=== PATIENT | female | born 1945 | race American Indian/Alaskan Native ===

== ENCOUNTER 2017-08-23 09:55 | Inpatient (IN) | payer OTHER, MEDICARE ==
[2017-08-23 10:15] VITALS: BMI 39.6
--- NOTE | 2017-08-23 10:38 | ED PDOC ---
Arrival/HPI - General Chief Complaint: Shortness Of Breath Time Seen by Provider: 08/23/17 10:02 Historian: Patient - History of Present Illness Narrative History of Present Illness (Text): 08/23/17 10:30 72 year old female, whose PMH includes COPD and hypertension, who presents to the emergency department complaining of shortness of breath associated with coughing. Patient states she was prescribed Prednisone on Wednesday but it has made no significant difference. Patient denies other complaints. Time/Duration: < week Symptom Onset: Sudden Symptom Course: Unchanged Context: Home Past Medical History - Provider Review Nursing Documentation Reviewed: Yes - Tetanus Immunization Tetanus Immunization: Up to Date - Reproductive Menopause: Yes - Cardiac Hx Hypertension: Yes - Pulmonary Hx Asthma: Yes - Psychiatric Hx Depression: No Hx Emotional Abuse: No Hx Physical Abuse: No Hx Substance Use: No - Surgical History Hx Hysterectomy: Yes Hx Tonsillectomy: Yes - Suicidal Assessment Feels Threatened In Home Enviroment: No Family/Social History - Physician Review Nursing Documentation Reviewed: Yes Family/Social History: Unknown Family HX Hx Alcohol Use: Yes Hx Substance Use: No Hx Substance Use Treatment: No Allergies/Home Meds Allergies/Adverse Reactions: Allergies statins Allergy (Uncoded 08/23/17 10:30) stinging sensation in legs Home Medications: Home Meds Medication Instructions Recorded Confirmed Budesonide/Formoterol Fumarate 1 aer IH PRN PRN 08/30/13 08/23/17 [Symbicort] Ezetimibe 10 mg PO DAILY 08/23/17 08/23/17 Tiotropium [Spiriva] 18 mcg IH DAILY 08/23/17 08/23/17 amLODIPine [Norvasc] 10 mg PO DAILY 08/23/17 08/23/17 Review of Systems - Physician Review All systems were reviewed & negative as marked: Yes - Review of Systems Constitutional: absent: Fevers Respiratory: SOB, Cough Cardiovascular: absent: Chest Pain Gastrointestinal: absent: Abdominal Pain Physical Exam Vital Signs Reviewed: Yes Vital Signs Temp Pulse Resp BP Pulse Ox 08/23/17 14:14 98.3 F 83 18 115/55 L 98 08/23/17 13:56 74 18 111/55 L 97 08/23/17 12:16 98.3 F 79 17 127/57 L 96 08/23/17 11:15 17 08/23/17 11:08 98.3 F 70 17 120/66 96 08/23/17 10:09 98.4 F 73 18 133/74 98 Temperature: Afebrile Blood Pressure: Normal Pulse: Regular Respiratory Rate: Normal Appearance: Positive for: Well-Appearing, Non-Toxic, Comfortable Pain Distress: None Mental Status: Positive for: Alert and Oriented X 3 - Systems Exam Head: Present: Atraumatic, Normocephalic Pupils: Present: PERRL Extroacular Muscles: Present: EOMI Conjunctiva: Present: Normal Mouth: Present: Moist Mucous Membranes Respiratory/Chest: Present: Clear to Auscultation, Decreased Breath Sounds ( bilaterally ). No: Good Air Exchange, Respiratory Distress, Accessory Muscle Use, Wheezes, Rales Cardiovascular: Present: Regular Rate and Rhythm, Normal S1, S2. No: Murmurs Abdomen: Present: Normal Bowel Sounds. No: Tenderness, Distention, Peritoneal Signs, Rebound, Guarding Neurological: Present: GCS=15, CN II-XII Intact, Speech Normal Skin: Present: Warm, Dry, Normal Color. No: Rashes Psychiatric: Present: Alert, Oriented x 3, Normal Insight, Normal Concentration Medical Decision Making ED Course and Treatment: 08/23/17 Impression: 72 year old female with diminished breath sounds bilaterally complaining of shortness of breath associated with coughing. Plan: -- EKG -- Chest X-ray -- Labs -- Duoneb and Solumedrol -- Reassess and disposition Progress Notes: EKG: Ordered, reviewed, and independently interpreted the EKG. Rate : 78 BPM Rhythm : NSR Interpretation : No ST-segment elevations or depressions, no T-wave inversions, normal intervals. Comparison : No previous EKG for comparison. 08/23/17 14:32 failure of oupt tx. accepte by dr valenzuela covering dr talbert. - Lab Interpretations Lab Results: 08/23/17 10:30 08/23/17 10:30 Lab Results 08/23/17 10:30: pO2 130 H, VBG pH 7.45 H, VBG pCO2 43.0, VBG HCO3 29.9 H, VBG Total CO2 31.2 H, VBG O2 Sat (Calc) 100.0 H, VBG Base Excess 5.2 H, VBG Potassium 3.4 L, Sodium 139.0, Chloride 104.0, Glucose 116 H, Lactate 1.0, FiO2 21.0, Venous Blood Potassium 3.4 L 08/23/17 10:30: Sodium 140, Chloride 100, Potassium 3.4 L, Carbon Dioxide 29, Anion Gap 15, BUN 20, Creatinine 1.1, Est GFR ( Amer) 59, Est GFR (Non- Af Amer) 49, Random Glucose 112 H, Calcium 9.2, Magnesium 2.1, Total Bilirubin 0.4, AST 31, ALT 43, Alkaline Phosphatase 83, Lactate Dehydrogenase 527, Total Creatine Kinase 277 H, CK-MB (CK-2) 2.9, CK-MB (CK-2) % Cancelled, Troponin I < 0.01, NT-Pro-B Natriuret Pep 31.6, Total Protein 7.3, Albumin 4.2, Globulin 3.1 , Albumin/Globulin Ratio 1.3 08/23/17 10:30: PT 11.6, INR 1.01, APTT 33.1, D-Dimer, Quantitative < 200 08/23/17 10:30: WBC 10.8, RBC 4.37, Hgb 12.3, Hct 36.6, MCV 83.8, MCH 28.1, MCHC 33.6, RDW 14.7 H, Plt Count 344, MPV 8.9, Gran % 67.2, Lymph % (Auto) 25.2 , [place] % (Auto) 3.0, Eos % (Auto) 4.4, Baso % (Auto) 0.2, Gran # 7.27 H, Lymph # (Auto) 2.7, [place] # (Auto) 0.3, Eos # (Auto) 0.5, Baso # (Auto) 0.02 I have reviewed the lab results: Yes - RAD Interpretation Radiology Orders: 08/23/17 10:35 CHEST PORTABLE [RAD] Stat Game Author: Radiologist - EKG Interpretation Interpreted by ED Physician: Yes Type: 12 lead EKG - Medication Orders Current Medication Orders: Discontinued Medications Albuterol/Ipratropium (Duoneb 3 Mg/0.5 Mg (3 Ml) Ud) 3 ml IH Q15M KARY Stop: 08/23/17 11:16 Last Admin: 08/23/17 11:50 Dose: 3 ml Methylprednisolone (Solu-Medrol) 125 mg IVP STAT STA Stop: 08/23/17 10:37 Last Admin: 08/23/17 11:20 Dose: 125 mg IVP Administration Document 08/23/17 11:20 OCS (Rec: 08/23/17 11:20 OCS [id number]) Charges for Administration # of IVP Administrations 1 - Scribe Statement The provider has reviewed the documentation as recorded by the Scribe Viviana Coleman Provider Scribe Attestation: All medical record entries made by the Scribe were at my direction and personally dictated by me. I have reviewed the chart and agree that the record accurately reflects my personal performance of the history, physical exam, medical decision making, and the department course for this patient. I have also personally directed, reviewed, and agree with the discharge instructions and disposition. Disposition/Present on Arrival - Present on Arrival Any Indicators Present on Arrival: No History of DVT/PE: No History of Uncontrolled Diabetes: No Urinary Catheter: No History of Decub. Ulcer: No History Surgical Site Infection Following: None - Disposition Have Diagnosis and Disposition been Completed?: Yes Diagnosis: COPD (chronic obstructive pulmonary disease) Disposition: HOSPITALIZED Disposition Time: 02:00 Condition: FAIR
[2017-08-23 10:56] LABS: BASO # 0.02 K/mm3 (0.0-2.0); BASO % 0.2 % (0.0-3.0); EOS # 0.5 (0.0-0.7); EOS % 4.4 % (1.5-5.0); GRAN # 7.27 (1.4-6.5); GRAN % 67.2 % (50.0-68.0); HEMOGLOBIN 12.3 g/dL (12.0-16.0); LYMPH # 2.7 (1.2-3.4); LYMPH % 25.2 % (22.0-35.0); MEAN CELL VOLUME 83.8 fl (80.0-105.0); MEAN CORPUSCULAR HEMOGLOBIN 28.1 pg (25.0-35.0); MEAN CORPUSCULAR HGB CONC 33.6 g/dl (31.0-37.0); MEAN PLATELET VOLUME 8.9 fl (7.0-11.0); MONO # 0.3 (0.1-0.6); RBC 4.37 10^6/uL (3.5-6.1); RED CELL DISTRIBUTION WIDTH 14.7 % (11.5-14.5); WHITE BLOOD COUNT 10.8 10^3/ul (4.5-11.0)
[2017-08-23 10:59] LABS: VENOUS BLOOD GAS BASE EXCESS 5.2 mmol/L (0.0-2.0); VENOUS BLOOD GAS PO2 130 mm/Hg (30-55); VENOUS BLOOD PH 7.45 (7.32-7.43)
[2017-08-23 11:05] LABS: ALB/GLOB RATIO 1.3 (1.1-1.8); ALBUMIN 4.2 g/dL (3.0-4.8); AST/SGOT 31 U/L (14-36); BLOOD UREA NITROGEN 20 mg/dL (7-21); CALCIUM 9.2 mg/dL (8.4-10.5); GFR AFRICAN-AMERICAN 59; GFR NON-AFRICAN AMERICAN 49
[2017-08-23 11:06] LABS: ALT/SGPT 43 U/L (7-56); INR 1.01 (0.93-1.08); PARTIAL THROMBOPLASTIN TIME 33.1 Seconds (25.1-36.5); PROTHROMBIN TIME 11.6 SECONDS (9.4-12.5)
--- NOTE | 2017-08-23 11:10 | RAD ---
HISTORY: sob COMPARISON: No prior. FINDINGS: LUNGS: No active pulmonary disease. PLEURA: No significant pleural effusion identified, no pneumothorax apparent. CARDIOVASCULAR: Normal. OSSEOUS STRUCTURES: No significant abnormalities. VISUALIZED UPPER ABDOMEN: Normal. OTHER FINDINGS: None. IMPRESSION: No active disease.
[2017-08-23 11:15] LABS: D DIMER < 200 ng/mL (0-243)
[2017-08-23 11:17] LABS: B-TYPE NATRIURETIC PEPTIDE 31.6 pg/mL (0-450); TROPONIN I < 0.01 ng/mL
[2017-08-23] MEDS: Albuterol-Ipratrop 3 mg / 0.5 (3 ml) UD IH SCH ×4 (11:20→20:45)
[2017-08-23 11:31] LABS: CK-MB 2.9 ng/mL (0.0-3.6)
[2017-08-23] MEDS ORDERED: Albuterol-Ipratrop 3 mg / 0.5 (3 ml) UD IH PRN (16:38)
[2017-08-23] MEDS ORDERED: Potassium Chloride 40 mEq/30 ml LIQ UD PO ONE (18:12)
[2017-08-23] MEDS ORDERED: Pneumococcal 23-Valent Vaccine IM ONE (19:49)
--- NOTE | 2017-08-23 20:24 | CARD ---
APPROVED REPORT EKG Measurement Heart [id number] <Conclusion> Sinus rhythm with premature supraventricular complexes Left axis deviation Inferior infarct, age undetermined Abnormal ECG
[2017-08-23] MEDS: Arformoterol 15 mcg/2 ml Inh Sol IH SCH (20:45)
[2017-08-23] MEDS: Budesonide 0.5 mg/2 ml Inhal Susp UD IH SCH (20:46)
[2017-08-23 21:42] LABS: PH,URINE 5.5 (4.7-8.0); URINE BILIRUBIN NEGATIVE (NEGATIVE); URINE BLOOD TRACE-LYSED (NEGATIVE); URINE GLUCOSE (UA) NEGATIVE (NEGATIVE); URINE LEUKOCYTE ESTERASE NEGATIVE Leu/uL (NEGATIVE); URINE PROTEIN NEGATIVE mg/dL (<30 mg/dL); URINE UROBILINOGEN 0.2 E.U./dL (<1 E.U./dL)
[2017-08-23] MEDS ORDERED: MethylPREDNISolone 40 mg Vial IVP SCH (22:00)
[2017-08-23 22:43] LABS: URINE APPEARANCE CLEAR (CLEAR); URINE COLOR YELLOW (YELLOW)
[2017-08-23 22:50] LABS: URINE BACTERIA SMALL (NEG); URINE EPITHELIAL CELLS 0 - 2 /hpf (0-5); URINE RBC 0 - 2 /hpf (0-2); URINE WBC 0 - 2 /hpf (0-6)
[2017-08-24] MEDS: Albuterol-Ipratrop 3 mg / 0.5 (3 ml) UD IH SCH ×2 (02:40→07:14)
--- NOTE | 2017-08-24 04:58 | HP ---
DATE OF EXAM: HISTORY OF PRESENT ILLNESS: The patient is a 72-year-old female. She is teacher in [employer] and she presented to the emergency room with shortness of breath and wheezing. The patient has no past history of asthma or history of chronic lung disease. She says that she suddenly felt sick she had some congestion and she felt some discomfort in the upper respiratory site. The patient had no fever. She denies smoking at this time. She smoked 6 years ago. She has stopped smoking. She has had previous surgery for hysterectomy. The patient has no other cardiopulmonary problems. The patient has ALLERGY TO STATINS. The patient apparently has history of mild hypertension and hyperlipidemia. She had not been on any ongoing bronchodilators as far as she knows. PHYSICAL EXAMINATION: GENERAL: She is pleasant. She is lying in bed comfortably. She has been treated in the emergency room with Solu-Medrol and the nebulizer treatment. The patient's appearance was good. HEENT: Head is normocephalic. NECK: The thyroid is not clinically enlarged. The patient's carotid pulses are present. HEART: Normal sinus rhythm. S1 and S2 present. No murmurs. ABDOMEN: Soft. Liver and spleen not palpable. No tenderness. No masses. CENTRAL NERVOUS SYSTEM: Conscious, rational, oriented. Cranial nerves II through XII are intact. The patient has sense of smell. No focal deficits or motor sensory dysfunction. Neurological, cerebellar function is within normal limits. The patient does complain of overactive bladder, which she says that it bothers here on and off, she will have to take care of that she says later. Currently, the patient is being admitted for respiratory difficulty and acute attack of bronchospasm associated with upper respiratory infection possibly. LABORATORY DATA: The patient's lab work done in the emergency room showed a white count of 10,800, differential showed she has 57% neutrophils and 7.2% toxic granulocytes. Chemistry findings, patient's blood sugar is 112, potassium is 3.4, sodium is 140. Creatine kinase was 277. Troponin was less than 0.01. ASSESSMENT AND PLAN: The patient's urinalysis was not done yet, we will request an urinalysis. We will also request thyroid test and patient's medication consists of albuterol nebulizer treatment. The patient make it amlodipine 10 mg daily for blood pressure. Patient is on Solu-Medrol 40 mg every 8 hours, Zetia 10 mg daily, and the patient is on Spiriva for respiratory . The patient's condition seem to be stable, but active. The patient needs bronchodilation and antibiotic treatment. We will place the patient on doxycycline b.i.d. and the patient would have a air route controller see the patient on consultation. The patient's documents in the emergency room, the EKG that was done not read, but apparently there was no acute ishemic findings on the EKG according to the emergency room physician. The patient's medications will be given to the patient. We will follow up. Lilian Weber MD
[2017-08-24] MEDS: Pantoprazole 40 mg EC Tab PO SCH ×2 (05:32→18:20)
[2017-08-24] MEDS ORDERED: Sodium Chloride 0.9% 1,000 ML IV SCH (06:00)
[2017-08-24 06:57] LABS: BASO # 0.01 K/mm3 (0.0-2.0); BASO % 0.1 % (0.0-3.0); GRAN # 15.24 (1.4-6.5); GRAN % 89.7 % (50.0-68.0); HEMOGLOBIN 11.8 g/dL (12.0-16.0); LYMPH # 1.4 (1.2-3.4); LYMPH % 8.1 % (22.0-35.0); MEAN CELL VOLUME 84.3 fl (80.0-105.0); MEAN CORPUSCULAR HGB CONC 33.2 g/dl (31.0-37.0); MEAN PLATELET VOLUME 9.1 fl (7.0-11.0); MONO # 0.4 (0.1-0.6); MONO % 2.1 % (1.0-6.0); RBC 4.21 10^6/uL (3.5-6.1); RED CELL DISTRIBUTION WIDTH 14.9 % (11.5-14.5)
[2017-08-24] MEDS: Arformoterol 15 mcg/2 ml Inh Sol IH SCH ×2 (07:14→20:17)
[2017-08-24] MEDS: Budesonide 0.5 mg/2 ml Inhal Susp UD IH SCH ×2 (07:14→20:17)
[2017-08-24 07:36] LABS: FREE T4 1.12 ng/dL (0.78-2.19); T4 8.4 ug/dL (5.5-11.0)
[2017-08-24 07:42] LABS: ALB/GLOB RATIO 1.3 (1.1-1.8); ALBUMIN 4.2 g/dL (3.0-4.8); BILIRUBIN,DIRECT 0.2 mg/dL (0.0-0.4); CALCIUM 9.1 mg/dL (8.4-10.5)
[2017-08-24] MEDS: MethylPREDNISolone 40 mg Vial IV SCH ×2 (09:48→21:57)
[2017-08-24] MEDS: Enoxaparin 40 mg Syringe SC SCH (09:48)
[2017-08-24] MEDS: Tiotropium 18 mcg Cap For Inhalation IH SCH (09:49)
--- NOTE | 2017-08-24 10:31 | RAD ---
HISTORY: COPD/??PNEUMONIA COMPARISON: 08/23/2017 TECHNIQUE: Chest PA and lateral FINDINGS: LUNGS: No active pulmonary disease. PLEURA: No significant pleural effusion identified. No pneumothorax apparent. CARDIOVASCULAR: Normal. OSSEOUS STRUCTURES: No significant abnormalities. VISUALIZED UPPER ABDOMEN: Normal. OTHER FINDINGS: None. IMPRESSION: No active disease.
--- NOTE | 2017-08-24 20:20 | CON ---
DATE: 08/24/2017 PULMONARY CONSULTATION HISTORY OF PRESENT ILLNESS: Ms. 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 She came to the emergency room with shortness of breath and wheezing. She states that she had a history of emphysema. This has been in the past. She had been given Spiriva and albuterol 5 years ago, she is not taking it since. She states that during the past several years, she has had no respiratory complaints, but over the last week, she had progression of shortness of breath with wheezing. She states that she is able to walk regularly, but does have some shortness of breath walking upstairs. Exertional dyspnea is confirmed. There is no cough or expectoration. No fever or chills. She has no seasonal allergies. SOCIAL HISTORY: The patient is a former smoker. No significant travel history. The patient has no pets. FAMILY HISTORY: Noncontributory. PAST MEDICAL HISTORY: Smoking as described above. Previous surgery for hysterectomy, history of hyperlipidemia and hypertension. REVIEW OF SYSTEMS: Shortness of breath, wheezing. No chest pains, hemoptysis or pleurisy. No vomiting, no urinary frequency, no rashes, no memory loss. All other systems negative. PHYSICAL EXAMINATION GENERAL: The patient is sitting in bed, more concerned about getting the right television channel than talking to me. She states that she is feeling better than when she came into the emergency room where she received nebulizer treatments and Solu-Medrol. HEENT: Normocephalic, atraumatic. NECK: Supple. No JVD, no thyromegaly, no bruit, no mass. HEART: Regular rhythm. S1, S2 without murmur, gallop or rub. LUNGS: Global decrease in breath sounds. Mild wheezes heard at this time. GI: Soft. Bowel sounds normoactive without mass, guarding, rebound or organomegaly. : Within normal limits EXTREMITIES: Reveal no clubbing, cyanosis or edema. There is no Homans' sign. SKIN: Dry, intact. No rashes NEUROLOGIC: No memory loss IMAGING: Chest x-ray is under penetrated, but shows no acute infiltrates. Electrocardiogram shows nonspecific ST-T wave changes. LABORATORY DATA: Shows a white count of 17,000, but when she arrived yesterday 10.8. This is likely steroid effect. Coags are normal. D-dimer less than 200. Blood gas pH 7.45, pCO2 of 43, pO2 of 130 on room air. Chemistry shows a potassium at 3.4, glucose of 112. CLINICAL IMPRESSION: 1. Underlying chronic obstructive pulmonary disease (probably emphysema preponderance with some asthmatic component at this time) 2. Past history of smoking. 3. Shortness of breath. 4. Acute bronchospasm. PLAN: Continue inhaled bronchodilators and corticosteroids. Sergio are suggested. Decrease IV corticosteroids at this time since she is feeling better, transition to p.o. and discontinue. The patient will require a complete pulmonary evaluation following her acute event. This should include a pulmonary function study and low dose screening CAT scan of the lung to rule out underlying pulmonary nodules and a former smoker. Her pulmonary medications need to be adjusted accordingly for outpatient use. Thank you for the opportunity to evaluate this patient. We will follow with you in the hospital and hopefully she will obtain the appropriate followup required after discharge. Danie Graves MD MTDRobert
--- NOTE | 2017-08-25 00:18 | PN ---
DATE: 08/24/2017 LOCATION: The patient was seen in room 566, bed 2. SUBJECTIVE: The patient is sitting up in the bed. The patient is alert, awake, responsive. According to the nurses' note, the patient has been feeling better with less shortness of breath and coughing. PHYSICAL EXAMINATION: VITAL SIGNS: T-max is 98.4; heart rate 83, 72; blood pressure 131/68, 120/64, 115/55, 127/55; respirations 18; O2 sat 99-100% on 2 L nasal cannula. HEENT: Head examination normocephalic, atraumatic. HEENT examination shows pinkish conjunctivae. Anicteric sclerae. Dry oral mucosa. No neck rigidity. CHEST: Kyphosis. LUNGS: Shows occasional rhonchi. No audible wheezing noted. CARDIOVASCULAR: S1, S2, regular rhythm. ABDOMEN: Soft. Positive bowel sound. No hepatosplenomegaly noted. GENITALIA: Female. RECTAL: Deferred. EXTREMITY: Shows no pitting edema, no calf tenderness, no Homans' sign. PSYCHIATRIC: Negative. MUSCULOSKELETAL: Shows a body mass index of 39.7. NEUROLOGIC: The patient is alert, awake, oriented x3. Cranial nerves II through XII grossly intact. Motor strength is 5/5 in the upper and lower extremity. DIAGNOSTICS: On 08/24/2017, WBC 17, hemoglobin and hematocrit 11.8 and 35.5 platelets 334. Granulocytes 89% segs. Sodium 139, potassium was 4.3, chloride 100, CO2 of 27, anion gap 17, BUN is 28, creatinine 1.2, GFR 54, glucose 133, hemoglobin A1c 6.3, magnesium 2.3. LFTs are normal. Cholesterol 153, LDL 74, HDL 55. Vitamin D 25-hydroxy 43. TSH 0.25, T4 of 8.4. The patient had a two-view chest x-ray done today, which was done for evaluation of COPD and questionable pneumonia, which was negative. EKG was reviewed. The patient was seen by Dr. Graves from Pulmonary, recommendations noted. IMPRESSION AND PLAN: 1. Acute exacerbation of chronic obstructive pulmonary disease and emphysema. 2. History of former smoking. 3. Bronchospasm (resolving). 4. Left axis deviation. 5. 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 6. Transient hypotension. 7. History of hypertension. 8. Leukocytosis. 9. Leukocytosis with granulocytosis secondary to steroids. 10. Mild normocytic anemia. 11. Hypokalemia. 12. Hyperglycemia with prediabetes and hemoglobin A1c of 6.3. 13. Ketonuria. 14. Bacteriuria. 15. Obesity with elevated body mass index of 40. 16. History of emphysema and chronic obstructive pulmonary disease. 17. History of former smoking. 18. History of hysterectomy. 19. History of tonsillectomy. 20. History of chronic obstructive pulmonary disease. Plan at this time, the patient is seen by Pulmonary. The patient has been ordered Brovana nebulizer 15 mcg every 12, DuoNeb nebulizer every 2 hours p.r.n. The patient is on Lovenox 40 mg subcu daily for DVT prophylaxis, Norvasc 10 mg daily, K-Dur. The patient was given potassium supplementation yesterday. The patient is on Protonix 40 daily, Pulmicort nebulizer 0.5 mg every 12 hours, Solu-Medrol decreased by Pulmonary to 20 mg IV every 12. The patient is on Spiriva 18 mcg daily, Tessalon Perles 200 three times a day, Zetia 10 mg daily. Chest PT ordered. O2 two liters continuous ordered. The patient is also on DuoNeb nebulizer every 6 hours and every 2 hours p.r.n. The patient was seen by Pulmonary. The patient was advised outpatient complete testing and workup including after resolution of the acute episode, the patient was advised to have a pulmonary function test and low-dose CT chest screening for history of former smoking. All of the above was explained and discussed with the patient at length and all questions concerned answered to the patient's satisfaction. If the patient continues to improve, the patient may be considered to be switched over to p.o. and p.o. steroids and will be discharged in near future. Dictated and electronically signed, not read. James Cowan MD
[2017-08-25] MEDS: Pantoprazole 40 mg EC Tab PO SCH ×2 (06:02→17:27)
[2017-08-25] MEDS: Arformoterol 15 mcg/2 ml Inh Sol IH SCH ×2 (07:17→19:55)
[2017-08-25] MEDS: Budesonide 0.5 mg/2 ml Inhal Susp UD IH SCH ×2 (07:17→19:55)
[2017-08-25 07:38] VITALS: RESP 20
[2017-08-25] MEDS: Enoxaparin 40 mg Syringe SC SCH (09:09)
[2017-08-25] MEDS: MethylPREDNISolone 40 mg Vial IV SCH ×2 (09:10→22:13)
[2017-08-25] MEDS: Tiotropium 18 mcg Cap For Inhalation IH SCH (09:10)
[2017-08-25] MEDS: cefTRIAXone 2 GM IN NS 2 GM/100 ML BAG IVPB SCH (09:17)
--- NOTE | 2017-08-25 11:45 | PN ---
DATE: 08/25/2017 PULMONARY PROGRESS NOTE SUBJECTIVE: Patient was seen and examined at bedside. She is currently on Brovana and budesonide by inhalation. She is receiving antibiotics, Rocephin and doxycycline. She is on a prophylactic dose of Lovenox. PHYSICAL EXAMINATION: VITAL SIGNS: Her temperature is 97.9, pulse 74, respirations 20, pulse oximetry is 100 on nasal cannula, blood pressure is 140/70. HEAD: Normocephalic and atraumatic. NECK: Supple with no jugular vein distention. CHEST: Symmetrical. CARDIOVASCULAR: S1 and S2. No S3. Regular. PULMONARY: Bilateral basilar rhonchi. Few expiratory wheezes. GASTROINTESTINAL: Soft and nontender. No organomegaly. EXTREMITIES: No pedal edema. No cyanosis. No clubbing. SKIN: Clear with no skin rashes. NEUROLOGIC: Limited at present time. LABORATORY DATA: There are no new labs. Her latest blood gas, pH of 7.45, pCO2 of 43, and pO2 of 130 on nasal cannula. ASSESSMENT: 1. Chronic obstructive pulmonary disease with exacerbation. 2. Acute bronchospasm. 3. Shortness of breath. 4. Past history of smoking. PLAN: We will continue with the inhalant bronchodilators and steroids. Decrease IV steroids. Patient is improving. Patient will require complete pulmonary evaluation. Tray Nicholson MD
[2017-08-25] MEDS: POLYETHYLENE GLYCOL 3350 17 GM/Dose PACKET PO SCH ×2 (13:40→17:28)
--- NOTE | 2017-08-25 23:55 | PN ---
DATE: 08/25/2017 SUBJECTIVE: Patient is seen lying in room 566, bed 2. Patient appears to be comfortable, in no distress. Patient reports decreasing shortness of breath, decreasing cough. Overnight nurse's notes were reviewed. Patient was found to be alert, awake, oriented x3. Breathing was without effort. Patient required humidified O2. PHYSICAL EXAMINATION: VITAL SIGNS: T-max 97.9; heart rate 68; blood pressure 134/68, 140/69, 143/70; respirations 20; O2 sat 100%. HEENT: Patient's head examination, normocephalic, atraumatic. HEENT examination shows pink conjunctivae. Anicteric sclerae. No oropharyngeal lesion. No neck rigidity. CHEST: Kyphosis. LUNGS: Shows no rales, crackles or wheezing and decreasing rhonchi noted. Improved air entry and improved breath sounds noted. No wheezing noted at present. CARDIOVASCULAR: Shows S1, S2, regular rhythm. ABDOMEN: Soft. Positive bowel sound. GENITALIA: Female. RECTAL: Examination deferred. EXTREMITIES: Shows no pitting edema, no calf tenderness, no Homans' sign. NEUROLOGIC: Patient is alert, awake, oriented x3. Motor strength is 5/5 in upper and lower extremities. Gait examination is independent. MUSCULOSKELETAL: Shows a body mass index of 40. Cranial nerves II through XII intact. DIAGNOSTICS: All the diagnostics since hospitalization was reviewed and explained to the patient. All questions concerned answered, which she acknowledged. Blood cultures negative. IMPRESSION AND PLAN: 1. Acute exacerbation of asthma and acute exacerbation of chronic obstructive pulmonary disease and emphysema. 2. History of hypertension. 3. Morbid obesity with elevated body mass index of 40. 4. Steroid-induced leukocytosis. 5. Granulocytosis. 6. Hypokalemia. 7. Hyperglycemia. 8. Prerenal kidney injury. 9. Microscopic hematuria, bacteriuria, ketonuria. 10. Left axis deviation. 11. Bronchospasm (resolving). 12. Former smoker. 13. History of tonsillectomy. 14. History of hysterectomy. 15. Obesity. Plan at this time, the patient was seen by Pulmonary. Patient was seen by physical therapist. Their recommendation was patient is not a candidate for physical therapy, discharge home. Patient was seen by social service assistant. Patient was a TCU referral. [facility] TCU non par with the patient's insurance. Discharge recommendations are home. CURRENT MEDICATIONS: Brovana 15 mcg every 12 hours, Colace 100 mg three times a day, doxycycline 100 mg IV every 12, DuoNeb nebulizer every 6 hours [id number] every 2 hours p.r.n., Lovenox 40 mg subcu daily for DVT prophylaxis, MiraLax 17 g twice a day, Norvasc 10 mg daily, Protonix 40 mg twice a day, Pulmicort nebulizer 0.5 mg every 12 hours, Rocephin 2 g IV daily, Solu-Medrol decreased by Pulmonary to 20 mg IV every 12, Spiriva 18 mcg daily, Tessalon Perles 200 three times a day, Zetia 10 mg daily. Chest PT, oxygen 2 liters ordered. Out of bed, MURPHY stockings, SCDs ordered. If the patient stays stable, patient will be considered for discharge over the next 24 to 48 hours. If the patient's respiratory status stays stable and improving, patient will be most likely considered for discharge over the next 24 to 48 hours, which was explained to the patient at length and all questions concerned answered. Patient was explained about the details of her medical condition, diagnostic test results, which she acknowledged and understood. All questions concerned answered. Dictated and electronically signed, not read. James Cowan MD
[2017-08-26] MEDS: Albuterol-Ipratrop 3 mg / 0.5 (3 ml) UD IH SCH ×2 (00:53→08:05)
[2017-08-26] MEDS: Pantoprazole 40 mg EC Tab PO SCH (05:24)
[2017-08-26] MEDS: Budesonide 0.5 mg/2 ml Inhal Susp UD IH SCH (08:05)
[2017-08-26] MEDS: Arformoterol 15 mcg/2 ml Inh Sol IH SCH (08:05)
[2017-08-26] MEDS: Tiotropium 18 mcg Cap For Inhalation IH SCH (09:17)
[2017-08-26] MEDS: Enoxaparin 40 mg Syringe SC SCH (09:18)
[2017-08-26] MEDS: cefTRIAXone 2 GM IN NS 2 GM/100 ML BAG IVPB SCH (09:18)
[2017-08-26] MEDS: POLYETHYLENE GLYCOL 3350 17 GM/Dose PACKET PO SCH (09:19)
[2017-08-26] MEDS ORDERED: Fluticasone-Salmeterol 250-50mcg Diskus IH SCH (10:00)
--- NOTE | 2017-08-26 11:34 | PN ---
DATE: 08/26/2017 PULMONARY PROGRESS NOTE LOCATION: Room 566. SUBJECTIVE: The patient is markedly improved, has no shortness of breath and feels well. She continues on antibiotics and inhaled bronchodilators and corticosteroids. PHYSICAL EXAMINATION VITAL SIGNS: Stable. She remains afebrile. Respiratory rate is 16, heart rate 90, O2 sat improved. HEENT: Head: Normocephalic, atraumatic. NECK: Supple. No JVD, no lymphadenopathy, no bruits. CHEST: Good air movement. LUNGS: Clear to percussion and auscultation. Rhonchi have resolved. No wheezes are auscultated. ABDOMEN: Soft. Bowel sounds are normoactive without mass, guarding, rebound, or organomegaly. EXTREMITIES: Reveal no clubbing, cyanosis, or edema. No Homans sign. SKIN: No rash or excoriation. NEUROLOGIC: Normal. LABORATORY DATA: Followup chest x-ray yesterday shows clear lung casanova, no evidence of pneumonitis. ASSESSMENT: 1. Chronic obstructive pulmonary disease. 2. Status post acute bronchospasm. 3. Smoking history. 4. Bronchitis. PLAN: We will change the inhalation medications are to the following, Advair 1 puff twice a day 250/50, Spiriva Respimat 2 puffs daily. Tapering the corticosteroids should be done over the next week. Oral steroids have been ordered today. The patient requires Pulmonary followup as an outpatient. She should have a screening CAT scan to rule out lung nodules. In addition, she needs to complete pulmonary function study within 1-2 weeks to better determine the exact etiology and status of her condition. We will be happy to see her at her request. Thank you for the opportunity to care for this patient. Please feel free to call me if there are any further issues that need to be discussed. Danie Graves MD
--- NOTE | 2017-08-26 12:30 | DS ---
HISTORY OF PRESENT ILLNESS: The patient is seen in room 566, bed 2. The patient is laying in the bed watching TV. Overnight nurse's notes were reviewed. No adverse events documented. No shortness of breath. No chest pain documented. The patient is seen by the Chainstitch Zipper Setter. The patient's discharge options were home upon medical clearance. PHYSICAL EXAMINATION: VITAL SIGNS: T-max 97.8, pulse 65, blood pressure 152/70, respiration 20, O2 sat 98 on 2 liters. INTAKE/OUTPUT: Not documented. HEENT: Head: Normocephalic, atraumatic. HEENT examination shows pinkish conjunctivae. Anicteric sclerae. No oropharyngeal lesion. NECK: No neck rigidity. CHEST: Kyphosis. LUNGS: Shows no wheezing, rhonchi, crackles, rales. CARDIOVASCULAR: S1 and S2, regular rhythm. ABDOMEN: Soft, protuberant, obese. Positive bowel sound. No hepatosplenomegaly noted. GENITALIA: Female. RECTAL: Deferred. EXTREMITY: Shows no pitting, no calf tenderness, no Homans' sign. Positive MURPHY stockings noted. MUSCULOSKELETAL: Shows a body mass index of 39.7. NEUROLOGICAL: The patient is alert, awake and oriented x3. Cranial nerves II-XII intact. Gait examination is independent. VASCULAR: Palpable pulses. PSYCHIATRIC: Negative. DIAGNOSTIC DATA: None from today. FINAL IMPRESSION, PLAN AND DISCHARGE DIAGNOSES: 1. Resolved acute exacerbation of asthma, chronic obstructive pulmonary disease and emphysema. 2. Resolved acute bronchospasm. 3. Hypertension. 4. Morbid obesity. 5. History of chronic obstructive pulmonary disease. 6. Mild normocytic anemia, probably dilutional. 7. Granulocytosis. 8. Steroid-induced leukocytosis. 9. Hypokalemia. 10. Steroid-induced hyperglycemia with prediabetes and hemoglobin A1c of 6.3. 11. Ketonuria, microscopic hematuria, bacteriuria. 12. Obesity with elevated body mass index of 40. 13. Left axis deviation with age indeterminate inferior infarct as per EKG. 14. Former smoker. PLAN AT THIS TIME: The patient is currently being treated with Brovana 15 mcg every 12 hours, Colace 100 mg three times a day, Vibramycin 100 mg every 12, Lovenox 40 mg subcu daily, Solu-Medrol 12 mg b.i.d., MiraLax 17 g twice a day, Norvasc 10 mg daily, Protonix 40 mg twice a day, Pulmicort nebulizer 0.5 mg every 12, Rocephin 2 g IV daily, Spiriva 18 mcg daily, Tessalon Perles 200 three times a days, Zetia 10 mg daily. The patient will be discharged home with following discharge medications which are as follows: The patient is discharged home on DuoNeb nebulizer every 6 hours, Norvasc 10 mg daily, Brovana nebulizer 15 mcg every 12, Tessalon Perles 200 three times a day, Pulmicort nebulizer 0.5 mg every 12 hours, Symbicort 80/4.5 two puffs b.i.d., Colace 100 mg three times a day, doxycycline 100 mg p.o. every 12, Zetia 10 mg daily, Medrol Dosepak, Protonix 40 mg daily, MiraLax 17 g twice a day, Spiriva 18 mcg daily. The patient is discharged home. Discharge meds as per updated ambulatory orders and new script. Copy of the diet to the patient upon discharge. Discharge followup with Dr. Cowan within 1 week. Follow up outpatient with Pulmonary. The patient was advised to schedule outpatient pulmonary function test and low-dose CT chest screening. During this hospitalization, the patient was extensively explained about the details of her medical condition, diagnosis, treatment plan, management plan, outpatient close followup, restrictions, activity, all details explained to the patient during this hospitalization. Discharge time is more than 45 minutes. Dictated and electronically signed, not read. James Cowan MD
[2017-08-26 16:03] VITALS: BP 141/75; PULSE 74; TEMP 98.6; O2SAT 100
[2017-08-26] MEDS ORDERED: Budesonide 0.5 mg/2 ml Inhal Susp UD IH SCH (20:00)
[2017-08-26] MEDS ORDERED: Arformoterol 15 mcg/2 ml Inh Sol IH SCH (20:00)
== END 2017-08-26 16:13 | disposition home or self-care (01) | DRG 191 ==
LOC: ED 09:55 → ERH 12:23 → 5RNO 14:41
PROVIDERS: ADMIT Internal Medicine; ATTEND Internal Medicine
DX: J44.1 Chronic obstructive pulmonary disease with (acute) exacerbation (principal); J45.901 Unspecified asthma with (acute) exacerbation; Z68.41 Body mass index [BMI] 40.0-44.9, adult; I10 Essential (primary) hypertension; E66.01 Morbid (severe) obesity due to excess calories; D64.9 Anemia, unspecified; D72.829 Elevated white blood cell count, unspecified; E78.5 Hyperlipidemia, unspecified; E87.6 Hypokalemia; R31.29 Other microscopic hematuria; R73.03 Prediabetes; T38.0X5A Adverse effect of glucocorticoids and synthetic analogues, initial encounter; Z79.899 Other long term (current) drug therapy; Z87.891 Personal history of nicotine dependence; Z90.710 Acquired absence of both cervix and uterus; Z68.39 Body mass index [BMI] 39.0-39.9, adult

== ENCOUNTER 2017-09-22 16:00 | Inpatient (IN) | payer OTHER, MEDICARE ==
--- NOTE | 2017-09-22 17:10 | ED PDOC ---
Arrival/HPI - General Time Seen by Provider: 09/22/17 16:25 - History of Present Illness Narrative History of Present Illness (Text): 72 y/o F c PMHx COPD, HTN p/w shortness of breath that is typical of her COPD associated with productive cough. Patient states her symptoms were improving since her last admission earlier this month but then she developed this cough with congestion and her breathing became worse. She denies fever, leg swelling, chest pain. She states she has been taking all her prescribed medications on time as directed and is frustrated with her worsening symptoms. PMD Chapo Past Medical History - Tetanus Immunization Tetanus Immunization: Up to Date - Cardiac Hx Cardiac Disorders: Yes Hx Hypertension: Yes - Pulmonary Hx Chronic Obstructive Pulmonary Disease (COPD): Yes (has nebulizer at home) - Neurological Hx Neurological Disorder: No - HEENT Hx HEENT Disorder: No - Renal Hx Renal Disorder: Yes - Endocrine/Metabolic Hx Endocrine Disorders: No - Hematological/Oncological Hx Blood Disorders: No - Integumentary Hx Dermatological Disorder: No - Musculoskeletal/Rheumatological Hx Musculoskeletal Disorders: No Hx Falls: No - Gastrointestinal Hx Gastrointestinal Disorders: No - Genitourinary/Gynecological Hx Genitourinary Disorders: No - Psychiatric Hx Psychophysiologic Disorder: No Hx Depression: No Hx Emotional Abuse: No Hx Physical Abuse: No Hx Substance Use: No - Surgical History Hx Hysterectomy: Yes - Anesthesia Hx Anesthesia: No Hx Anesthesia Reactions: No - Suicidal Assessment Feels Threatened In Home Enviroment: No Family/Social History Family/Social History: No Known Family HX Smoking Status: Former Smoker Hx Alcohol Use: No Hx Substance Use: No Hx Substance Use Treatment: No Allergies/Home Meds Allergies/Adverse Reactions: Allergies statins Allergy (Uncoded 09/22/17 17:11) stinging sensation in legs Home Medications: Home Meds Medication Instructions Recorded Confirmed Budesonide/Formoterol Fumarate 1 aer IH PRN PRN 08/30/13 09/22/17 [Symbicort 80-4.5 Mcg Inhaler] Ezetimibe 10 mg PO DAILY 08/23/17 09/22/17 Tiotropium [Spiriva] 18 mcg IH DAILY 08/23/17 09/22/17 Furosemide [Lasix] 40 mg PO DAILY 09/22/17 09/22/17 Olmesartan/Hydrochlorothiazide 1 tab PO DAILY 09/22/17 09/22/17 [Olmesartan-Hctz 40-25 mg Tab] Review of Systems - Physician Review All systems were reviewed & negative as marked: Yes - Review of Systems Constitutional: absent: Fevers Cardiovascular: absent: Chest Pain Physical Exam - Physical Exam Narrative Physical Exam (Text): Gen: NAD Head: NC/AT Eyes: PERRL ENT: MMM Neck: Supple Chest: No tenderness CV: Regular rate Lungs: Diffuse wheezing Abd: Soft, NT Back: No CVA tenderness Skin: No rash Extremities: No edema of legs Neuro: Alert, no focal deficit Vital Signs Temp Pulse Resp BP Pulse Ox 09/22/17 17:11 98.4 F 81 19 142/77 97 Medical Decision Making ED Course and Treatment: Plan: treat COPD exacerbation with duonebs and steroids. CXR to rule out pneumonia. 09/22/17 19:02 CXR no acute disease. Patient continues to feel short of breath. Will keep for continuous nebulizers. Dr. talbert accepts to his service. Potassium supplemented. hvac technician residential paged. - Lab Interpretations Lab Results: 09/22/17 17:31 09/22/17 17:31 Lab Results 09/22/17 17:31: Sodium 146, Potassium 3.3 L, Chloride 102, Carbon Dioxide 31, Anion Gap 17, BUN 27 H, Creatinine 1.4 H, Est GFR ( Amer) 45, Est GFR ( Non-Af Amer) 37, Random Glucose 119 H, Calcium 9.5, Total Bilirubin 0.1 L, AST 48 H D, ALT 40, Alkaline Phosphatase 91, Total Protein 7.7, Albumin 4.5, Globulin 3.2, Albumin/Globulin Ratio 1.4 09/22/17 17:31: WBC 9.9 D, RBC 4.27, Hgb 12.0, Hct 36.2, MCV 84.8, MCH 28.1, MCHC 33.1, RDW 14.7 H, Plt Count 418, MPV 9.3, Gran % 62.7, Lymph % (Auto) 29.4 , Barron % (Auto) 3.8, Eos % (Auto) 3.8, Baso % (Auto) 0.3, Gran # 6.18, Lymph # ( Auto) 2.9, Barron # (Auto) 0.4, Eos # (Auto) 0.4, Baso # (Auto) 0.03 - RAD Interpretation Radiology Orders: 09/22/17 17:04 CHEST TWO VIEWS (PA/LAT) [RAD] Stat 09/22/17 19:00 DUPLEX LOWER EXTRM VEIN BILAT [US] Stat - Medication Orders Current Medication Orders: Potassium Chloride (Potassium Chloride 20 Meq/100 Ml) 20 meq in 100 mls @ 50 mls/hr IVPB Q2H KARY Stop: 09/22/17 22:59 Potassium Chloride (K-Dur 20 Meq Er Tab) 40 meq PO STAT STA Stop: 09/22/17 19:02 Discontinued Medications Albuterol/Ipratropium (Duoneb 3 Mg/0.5 Mg (3 Ml) Ud) 3 ml IH Q15M KARY Stop: 09/22/17 17:46 Last Admin: 09/22/17 17:43 Dose: 3 ml Methylprednisolone (Solu-Medrol) 125 mg IVP STAT STA Stop: 09/22/17 17:06 Last Admin: 09/22/17 17:30 Dose: 125 mg IVP Administration Document 09/22/17 17:30 HI (Rec: 09/22/17 17:42 HI [id number]) Charges for Administration # of IVP Administrations 1 Disposition/Present on Arrival - Present on Arrival Any Indicators Present on Arrival: No History of DVT/PE: No History of Uncontrolled Diabetes: No Urinary Catheter: No History Surgical Site Infection Following: None - Disposition Have Diagnosis and Disposition been Completed?: Yes Diagnosis: COPD exacerbation, Hypokalemia Disposition: HOSPITALIZED Disposition Time: 19:03 Patient Plan: Observation, Telemetry Condition: FAIR Referrals: James Talbert MD [Primary Care Provider] - Follow up with primary
[2017-09-22] MEDS: Albuterol-Ipratrop 3 mg / 0.5 (3 ml) UD IH SCH ×3 (17:30→18:00)
[2017-09-22 17:48] LABS: BASO # 0.03 K/mm3 (0.0-2.0); BASO % 0.3 % (0.0-3.0); EOS # 0.4 (0.0-0.7); EOS % 3.8 % (1.5-5.0); GRAN # 6.18 (1.4-6.5); GRAN % 62.7 % (50.0-68.0); LYMPH # 2.9 (1.2-3.4); LYMPH % 29.4 % (22.0-35.0); MEAN CELL VOLUME 84.8 fl (80.0-105.0); MEAN CORPUSCULAR HEMOGLOBIN 28.1 pg (25.0-35.0); MEAN CORPUSCULAR HGB CONC 33.1 g/dl (31.0-37.0); MEAN PLATELET VOLUME 9.3 fl (7.0-11.0); MONO # 0.4 (0.1-0.6); MONO % 3.8 % (1.0-6.0); RBC 4.27 10^6/uL (3.5-6.1); RED CELL DISTRIBUTION WIDTH 14.7 % (11.5-14.5); WHITE BLOOD COUNT 9.9 10^3/ul (4.5-11.0)
[2017-09-22 18:02] LABS: ALB/GLOB RATIO 1.4 (1.1-1.8); ALBUMIN 4.5 g/dL (3.0-4.8); CALCIUM 9.5 mg/dL (8.4-10.5)
--- NOTE | 2017-09-22 18:43 | RAD ---
HISTORY: Dyspnea. COMPARISON: 08/24/2017 TECHNIQUE: Chest PA and lateral FINDINGS: LUNGS: No active pulmonary disease. PLEURA: No significant pleural effusion identified. No pneumothorax apparent. CARDIOVASCULAR: No radiographic findings to suggest acute or significant cardiovascular disease. OSSEOUS STRUCTURES: No significant abnormalities. VISUALIZED UPPER ABDOMEN: Normal. OTHER FINDINGS: None. IMPRESSION: No active disease. No significant interval change compared to the prior examination(s).
[2017-09-22] MEDS ORDERED: Potassium Chloride 20 mEq ER Tab PO STA (19:01)
--- NOTE | 2017-09-22 21:14 | CP.PCM.HP ---
<Kaylee Durand - Last Filed: 09/23/17 02:46> History of Present Illness - History of Present Illness History of Present Illness: PGY-2 h&p for Dr. Cowan's service 72 yo female with PMH of COPD, HTN presented with shortness of breath that is typical of her COPD associated with productive cough. Patient states that her symptoms began about 5-6 days ago. She states that she was walking, carring heavy book when she became sob, she states that it improved with rest. Patient states she was [facility] with similar symptoms, she states that her sob improved since her last admission. Patient also report cough with clear mucus that began round the same time. She states that she has been taking her medication consistently since discharge. She also reports lower extremity swelling that has been occurring for few weeks. Her pcp stop her norvasc and the swelling improved. She denies fever, chest pain, abd pain. She denies sick contacts. Currently she is comfortable stating that her sob occurs with exertion. PMH: COPD, HTN, arthritis PSH: hysterectomy, tonsilectomy social history: former smoker quit 7 yo, denies alcohol use, illicit drug use allergy: statins Present on Admission - Present on Admission Any Indicators Present on Admission: No Review of Systems - Constitutional Constitutional: absent: Chills, Fatigue, Fever - EENT Nose/Mouth/Throat: absent: Nasal Discharge, Dysphagia, Hoarsness, Sore Throat - Cardiovascular Cardiovascular: Dyspnea, Dyspnea on Exertion, Leg Edema. absent: Chest Pain, Diaphoresis, Palpitations - Respiratory Respiratory: Cough, Dyspnea, Dyspnea on Exertion. absent: Hemoptysis, Wheezing - Gastrointestinal Gastrointestinal: absent: Abdominal Pain, Constipation, Diarrhea, Nausea, Vomiting - Musculoskeletal Musculoskeletal: Arthralgias (arthritis). absent: Muscle Weakness, Myalgias, Numbness - Neurological Neurological: absent: Dizziness, Focal Weakness, Headaches, Tingling, Weakness - Hematologic/Lymphatic Hematologic: absent: Easy Bleeding, Easy Bruising Past Patient History - Tetanus Immunizations Tetanus Immunization: Up to Date - Past Social History Smoking Status: Former Smoker - CARDIAC Hx Cardiac Disorders: Yes Hx Hypertension: Yes - PULMONARY Hx Chronic Obstructive Pulmonary Disease (COPD): Yes (has nebulizer at home) - NEUROLOGICAL Hx Neurological Disorder: No - HEENT Hx HEENT Problems: No - RENAL Hx Chronic Kidney Disease: Yes - ENDOCRINE/METABOLIC Hx Endocrine Disorders: No - HEMATOLOGICAL/ONCOLOGICAL Hx Blood Disorders: No - INTEGUMENTARY Hx Dermatological Problems: No - MUSCULOSKELETAL/RHEUMATOLOGICAL Hx Musculoskeletal Disorders: No Hx Falls: No - GASTROINTESTINAL Hx Gastrointestinal Disorders: No - GENITOURINARY/GYNECOLOGICAL Hx Genitourinary Disorders: No - PSYCHIATRIC Hx Psychophysiologic Disorder: No Hx Depression: No Hx Emotional Abuse: No Hx Physical Abuse: No Hx Substance Use: No - SURGICAL HISTORY Hx Hysterectomy: Yes - ANESTHESIA Hx Anesthesia: No Hx Anesthesia Reactions: No Meds Allergies/Adverse Reactions: Allergies Allergy/AdvReac Type Severity Reaction Status Date / Time statins Allergy stinging Uncoded 09/22/17 17:11 sensation in legs Physical Exam - Constitutional Appears: No Acute Distress - Head Exam Head Exam: ATRAUMATIC, NORMOCEPHALIC - Eye Exam Eye Exam: EOMI, Normal appearance - ENT Exam ENT Exam: Mucous Membranes Moist - Respiratory Exam Respiratory Exam: Wheezes (diffuse), NORMAL BREATHING PATTERN. absent: Accessory Muscle Use, Chest Wall Tenderness, Decreased Breath Sounds, Respiratory Distress - Cardiovascular Exam Cardiovascular Exam: REGULAR RHYTHM, +S1, +S2. absent: Bradycardia, Tachycardia - GI/Abdominal Exam GI & Abdominal Exam: Normal Bowel Sounds, Soft. absent: Diminished Bowel Sounds , Distended, Firm, Guarding, Tenderness - Extremities Exam Extremities exam: Positive for: pedal edema. Negative for: tenderness - Neurological Exam Neurological exam: Alert, Oriented x3 - Skin Skin Exam: Dry, Intact, Normal Color, Warm Results - Vital Signs Recent Vital Signs: Last Vital Signs Temp 98.4 F 09/22/17 17:11 Pulse 79 09/22/17 20:04 Resp 18 09/22/17 20:04 BP 145/63 09/22/17 20:04 Pulse Ox 96 09/22/17 20:04 - Labs Result Diagrams: 09/22/17 17:31 09/22/17 17:31 Assessment & Plan - Assessment and Plan (Free Text) Assessment: 72 yo female with PMH of COPD, HTN presented with shortness of breath most likely secondary to COPD exacerbation Plan: SOB - most likely due to copd exacerbation, less likely to be infection vs PE - afebrile without leukocytosis - ABG was ordered however patient refused - duonebs q6 ugo and q2 prn - continue home brovana - abx doxycycline and ceftriaxone - patient received solu-medrol 125 in ED, will continue 40mg q12 - will order echo hypokalemia - will order mag and phos - potassium replaced - repeat CMP in AM lower extremities edema - doppler completed official read pending case discussed with Dr. Cowan <ChapoJames - Last Filed: 09/25/17 14:10> Results - Vital Signs Recent Vital Signs: Last Vital Signs Temp 97.7 F 09/24/17 14:00 Pulse 86 09/24/17 14:00 Resp 21 09/24/17 14:00 BP 147/72 09/24/17 14:00 Pulse Ox 99 09/24/17 14:00 - Labs Result Diagrams: 09/23/17 05:30 09/25/17 07:00 Labs: Laboratory Results - last 24 hr 09/24/17 09/24/17 06:20 07:00 Sodium 142 Potassium 4.2 Chloride 104 Carbon Dioxide 24 Anion Gap 19 BUN 30 H Creatinine 1.2 Est GFR ( Amer) 54 Est GFR (Non-Af Amer) 44 Random Glucose 138 H Calcium 9.1 Phosphorus 4.5 Magnesium 1.8 Total Bilirubin 0.1 L Direct Bilirubin 0.1 AST 38 H D ALT 37 Alkaline Phosphatase 71 Total Protein 7.2 Albumin 4.1 Globulin 3.2 Albumin/Globulin Ratio 1.3 Assessment & Plan - Assessment and Plan (Free Text) Assessment: IMPRESSION AND PLAN: 1. Acute exacerbation of chronic obstructive pulmonary disease with bronchospasm, wheezing and shortness of breath. 2. Leukocytosis with granulocytosis. 3. Hypokalemia. 4. Hypophosphatemia. 5. Hypertension. 6. Morbid obesity with elevated body mass index of 40. 7. Hypokalemia. 8. Acute kidney injury with prerenal kidney injury. 9. Hyperglycemia. 10. Hyperuricemia. 11. Hypophosphatemia. 12. Leukocytosis with granulocytosis. 13. Mild normocytic anemia. 14. Bilateral lower extremity venous stasis of the lower extremity. 15. History of pulmonary hypertension with elevated right ventricular systolic pressure of greater than 40 mmHg. 16. Left ventricular ejection fraction of 71%. 17. Pulmonary hypertension with right ventricular systolic pressure of 56 mmHg. 18. 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 19. History of former nicotine dependence. 20. Morbid obesity. 21. History of prediabetes with hemoglobin A1c of 6.3. 23. Sigmoid colon diverticulosis. 24. History of recurrent acute exacerbation of chronic obstructive pulmonary disease and emphysema. 25. Ketonuria, microscopic hematuria, bacteriuria. 26. History of tonsillectomy, hysterectomy. 27. 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 28. History of former nicotine dependence. 29. History of chronic obstructive pulmonary disease. Plan at this time, the patient's repeat CMP, LFTs have been ordered. The patient is currently on Brovana nebulizer 15 mcg every 12, Cardizem 30 mg p.o. four times daily, Colace 100 mg three times a day, Vibramycin 100 mg IV every 12, DuoNeb nebulizer every 6 hours [id number] every 2 hours p.r.n., heparin 5000 subcu every 8. The patient will be started on Lasix 20 mg IV daily, MiraLax 17 g daily. The patient was started on Neutra-Phos 1 packet four times daily for total of 8 doses, Protonix 40 mg daily, Rocephin 1 g IV daily, Solu-Medrol 40 mg IV every 12, which will be considered to be increased as the patient is still having wheezing and shortness of breath, Zetia 10 mg daily, allopurinol 300 mg daily. The patient is on chest PT, incentive spirometers, oxygen 2 L. The patient has been ordered out of bed, MURPHY stockings, sequential compression devices, occupational therapy, physical therapy. The patient will be considered for discontinue telemetry. The patient will be continued on the above therapeutic intervention. The patient has been updated about her condition, diagnoses, test results, recommendation, which she acknowledged and understand. All questions concerned answered. Dictated and electronically signed, not read. James Cowan MD Plan: IMPRESSION AND PLAN: 1. Acute exacerbation of chronic obstructive pulmonary disease with bronchospasm, wheezing and shortness of breath. 2. Leukocytosis with granulocytosis. 3. Hypokalemia. 4. Hypophosphatemia. 5. Hypertension. 6. Morbid obesity with elevated body mass index of 40. 7. Hypokalemia. 8. Acute kidney injury with prerenal kidney injury. 9. Hyperglycemia. 10. Hyperuricemia. 11. Hypophosphatemia. 12. Leukocytosis with granulocytosis. 13. Mild normocytic anemia. 14. Bilateral lower extremity venous stasis of the lower extremity. 15. History of pulmonary hypertension with elevated right ventricular systolic pressure of greater than 40 mmHg. 16. Left ventricular ejection fraction of 71%. 17. Pulmonary hypertension with right ventricular systolic pressure of 56 mmHg. 18. 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 19. History of former nicotine dependence. 20. Morbid obesity. 21. History of prediabetes with hemoglobin A1c of 6.3. 23. Sigmoid colon diverticulosis. 24. History of recurrent acute exacerbation of chronic obstructive pulmonary disease and emphysema. 25. Ketonuria, microscopic hematuria, bacteriuria. 26. History of tonsillectomy, hysterectomy. 27. 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 28. History of former nicotine dependence. 29. History of chronic obstructive pulmonary disease. Plan at this time, the patient's repeat CMP, LFTs have been ordered. The patient is currently on Brovana nebulizer 15 mcg every 12, Cardizem 30 mg p.o. four times daily, Colace 100 mg three times a day, Vibramycin 100 mg IV every 12, DuoNeb nebulizer every 6 hours [id number] every 2 hours p.r.n., heparin 5000 subcu every 8. The patient will be started on Lasix 20 mg IV daily, MiraLax 17 g daily. The patient was started on Neutra-Phos 1 packet four times daily for total of 8 doses, Protonix 40 mg daily, Rocephin 1 g IV daily, Solu-Medrol 40 mg IV every 12, which will be considered to be increased as the patient is still having wheezing and shortness of breath, Zetia 10 mg daily, allopurinol 300 mg daily. The patient is on chest PT, incentive spirometers, oxygen 2 L. The patient has been ordered out of bed, MURPHY stockings, sequential compression devices, occupational therapy, physical therapy. The patient will be considered for discontinue telemetry. The patient will be continued on the above therapeutic intervention. The patient has been updated about her condition, diagnoses, test results, recommendation, which she acknowledged and understand. All questions concerned answered. Dictated and electronically signed, not read. James Cowan MD Attending/Attestation - Attestation I have personally seen and examined this patient.: Yes I have fully participated in the care of the patient.: Yes I have reviewed all pertinent clinical information: Yes
[2017-09-22 23:50] VITALS: BMI 40.2
[2017-09-23] MEDS: MethylPREDNISolone 40 mg Vial IVP SCH ×4 (00:36→22:25)
[2017-09-23] MEDS: Albuterol-Ipratrop 3 mg / 0.5 (3 ml) UD IH SCH ×4 (01:49→20:24)
[2017-09-23] MEDS: Pantoprazole 40 mg EC Tab PO SCH ×2 (05:15→16:48)
[2017-09-23 06:16] LABS: BASO # 0.01 K/mm3 (0.0-2.0); BASO % 0.1 % (0.0-3.0); EOS % 0.1 % (1.5-5.0); GRAN # 10.78 (1.4-6.5); GRAN % 85.7 % (50.0-68.0); HEMOGLOBIN 11.5 g/dL (12.0-16.0); LYMPH # 1.6 (1.2-3.4); MEAN CELL VOLUME 84.1 fl (80.0-105.0); MEAN CORPUSCULAR HEMOGLOBIN 27.8 pg (25.0-35.0); MEAN PLATELET VOLUME 9.4 fl (7.0-11.0); MONO # 0.1 (0.1-0.6); MONO % 1.1 % (1.0-6.0); RBC 4.14 10^6/uL (3.5-6.1); RED CELL DISTRIBUTION WIDTH 14.6 % (11.5-14.5); WHITE BLOOD COUNT 12.6 10^3/ul (4.5-11.0)
[2017-09-23 06:54] LABS: FREE T4 0.89 ng/dL (0.78-2.19); T4 7.7 ug/dL (5.5-11.0)
[2017-09-23 07:18] LABS: ALB/GLOB RATIO 1.3 (1.1-1.8); ALBUMIN 4.3 g/dL (3.0-4.8); BILIRUBIN,DIRECT 0.2 mg/dL (0.0-0.4); CALCIUM 9.8 mg/dL (8.4-10.5)
[2017-09-23] MEDS: Arformoterol 15 mcg/2 ml Inh Sol IH SCH ×2 (07:46→20:24)
--- NOTE | 2017-09-23 09:15 | US ---
HISTORY: Leg pain and swelling. Evaluate for DVT PHYSICIAN(S): Allen Jj MD. TECHNIQUE: Duplex sonography and color-flow Doppler with graded compression were used to evaluate the deep venous systems of both lower extremities. FINDINGS: The visualized deep venous systems of both lower extremities are sonographically normal and compressible. Normal wave forms and augmentation are seen. There is no sonographic evidence for deep venous thrombosis in the visualized segments of both lower extremities. IMPRESSION: No sonographic evidence for deep venous thrombosis in the visualized segments of both lower extremities.
[2017-09-23] MEDS: cefTRIAXone 1 gm 1 GM/100 ML BAG IVPB SCH (09:58)
[2017-09-23] MEDS: POLYETHYLENE GLYCOL 3350 17 GM/Dose PACKET PO SCH (12:00)
--- NOTE | 2017-09-23 13:05 | PN ---
DATE: 09/23/2017 SUBJECTIVE: The patient is seen in room 270, bed 2. The patient is lying in the bed. The patient is comfortable. The patient states still she is short of breath, but slightly better than yesterday. The patient appears to have some dyspnea on exertion. The patient refused ABG yesterday, though the patient was advised about it. PHYSICAL EXAMINATION: VITAL SIGNS: T-max 98.2. Telemetry shows sinus rhythm, heart rate 78, 80, 89; blood pressure 146/71, 153/83, 130/60, 145/63; respirations 19; O2 sat 98%. HEENT: Head examination normocephalic, atraumatic. HEENT examination shows pinkish conjunctivae. Anicteric sclerae. No oropharyngeal lesion. No neck rigidity. CHEST: Kyphosis. Decreased breath sounds noted. Positive wheezing noted at both bases posteriorly. CARDIOVASCULAR: S1, S2. Regular rhythm. Positive systolic murmur, left sternal border, right second intercostal space, left second intercostal space. ABDOMEN: Protuberant. Positive bowel sound. GENITALIA: Female. RECTAL: Deferred. EXTREMITY: Shows positive pitting edema of the lower extremity 1+. MUSCULOSKELETAL: Shows a body mass index of 40. VASCULAR: Palpable pulses. MUSCULOSKELETAL: An elevated body mass index. NEUROLOGICAL: The patient is alert, awake, responsive. Follows command. Motor strength is 5/5. DIAGNOSTICS: On 09/23/2017, WBC 12.6, hemoglobin and hematocrit 11.5 and 34.8, platelet 422. Granulocytes 86. Sodium 146, potassium 4, chloride 105, CO2 of 25, anion gap 20, BUN 24, creatinine 1.2, GFR 54, glucose 156, uric acid 10, calcium 9.8, phosphorus 2.1, AST 48, cholesterol is 159, LDL is 88, HDL is 50. TSH is 0.24. IMPRESSION AND PLAN: 1. Acute exacerbation of chronic obstructive pulmonary disease with bronchospasm, wheezing and shortness of breath. 2. Leukocytosis with granulocytosis. 3. Hypokalemia. 4. Hypophosphatemia. 5. Hypertension. 6. Morbid obesity with elevated body mass index of 40. 7. Hypokalemia. 8. Acute kidney injury with prerenal kidney injury. 9. Hyperglycemia. 10. Hyperuricemia. 11. Hypophosphatemia. 12. Leukocytosis with granulocytosis. 13. Mild normocytic anemia. 14. Bilateral lower extremity venous stasis of the lower extremity. 15. History of pulmonary hypertension with elevated right ventricular systolic pressure of greater than 40 mmHg. 16. Left ventricular ejection fraction of 71%. 17. Pulmonary hypertension with right ventricular systolic pressure of 56 mmHg. 18. 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 19. History of former nicotine dependence. 20. Morbid obesity. 21. History of prediabetes with hemoglobin A1c of 6.3. 23. Sigmoid colon diverticulosis. 24. History of recurrent acute exacerbation of chronic obstructive pulmonary disease and emphysema. 25. Ketonuria, microscopic hematuria, bacteriuria. 26. History of tonsillectomy, hysterectomy. 27. 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 28. History of former nicotine dependence. 29. History of chronic obstructive pulmonary disease. Plan at this time, the patient's repeat CMP, LFTs have been ordered. The patient is currently on Brovana nebulizer 15 mcg every 12, Cardizem 30 mg p.o. four times daily, Colace 100 mg three times a day, Vibramycin 100 mg IV every 12, DuoNeb nebulizer every 6 hours [id number]-cpt-cumoc every 2 hours p.r.n., heparin 5000 subcu every 8. The patient will be started on Lasix 20 mg IV daily, MiraLax 17 g daily. The patient was started on Neutra-Phos 1 packet four times daily for total of 8 doses, Protonix 40 mg daily, Rocephin 1 g IV daily, Solu-Medrol 40 mg IV every 12, which will be considered to be increased as the patient is still having wheezing and shortness of breath, Zetia 10 mg daily, allopurinol 300 mg daily. The patient is on chest PT, incentive spirometers, oxygen 2 L. The patient has been ordered out of bed, MURPHY stockings, sequential compression devices, occupational therapy, physical therapy. The patient will be considered for discontinue telemetry. The patient will be continued on the above therapeutic intervention. The patient has been updated about her condition, diagnoses, test results, recommendation, which she acknowledged and understand. All questions concerned answered. Dictated and electronically signed, not read. James Cowan MD [facility] # [id number]
--- NOTE | 2017-09-23 13:41 | CARD ---
APPROVED REPORT EXAM: Two-dimensional and M-mode echocardiogram with Doppler and color Doppler. INDICATION Dyspnea 2D DIMENSIONS Left Atrium (2D)3.5 (1.6-4.0cm)IVSd1.4 (0.7-1.1cm) LVDd4.4 (3.9-5.9cm)PWd1.2 (0.7-1.1cm) LVDs2.6 (2.5-4.0cm)FS (%) 40.9 % LVEF (%)71.8 (>50%) M-Mode DIMENSIONS Aortic Root2.60 (2.2-3.7cm)Aortic Cusp Exc.1.50 (1.5-2.0cm) Aortic Valve AoV Peak Qobeapht941.0cm/Neto Peak GR.43mmHg Mitral Valve E/A ratio0.0 TDI E/Lateral E'0.0E/Medial E'0.0 Tricuspid Valve TR Peak Agisiahi090ri/sRAP [id number] Peak Gr.46mmHg [id number] LEFT VENTRICLE The left ventricle is normal size. There is mild concentric left ventricular hypertrophy. The left ventricular function is normal. The left ventricular ejection fraction is within the normal range. There is normal LV segmental wall motion. Transmitral Doppler flow pattern is Grade I-abnormal relaxation pattern. RIGHT VENTRICLE The right ventricle is normal size. There is normal right ventricular wall thickness. The right ventricular systolic function is normal. ATRIA The left atrium size is normal. The right atrium size is normal. AORTIC VALVE The aortic valve is mildly thickened. There is mild aortic regurgitation. MITRAL VALVE The mitral valve is mildly thickened. Mitral regurgitation is mild. TRICUSPID VALVE There is moderate tricuspid regurgitation. There is moderate pulmonary hypertension. PULMONIC VALVE There is mild pulmonic valvular regurgitation. GREAT VESSELS The aortic root is normal in size. PERICARDIAL EFFUSION There is a trace loculated anterior pericardial effusion. <Conclusion> The left ventricle is normal size. There is mild concentric left ventricular hypertrophy. The left ventricular function is normal. The left ventricular ejection fraction is within the normal range. There is normal LV segmental wall motion. Transmitral Doppler flow pattern is Grade I-abnormal relaxation pattern. There is mild aortic regurgitation. Mitral regurgitation is mild. There is moderate tricuspid regurgitation. There is moderate pulmonary hypertension.
--- NOTE | 2017-09-23 14:28 | CARD ---
APPROVED REPORT EKG Measurement Heart [id number] <Conclusion> Poor data quality, interpretation may be adversely affected Sinus rhythm with premature atrial complexes Inferior infarct, age undetermined Abnormal ECG
[2017-09-23] MEDS: Potassium & Sodium Phosphate PO SCH ×3 (15:30→22:25)
[2017-09-24] MEDS: Albuterol-Ipratrop 3 mg / 0.5 (3 ml) UD IH SCH ×4 (01:12→21:48)
[2017-09-24] MEDS: MethylPREDNISolone 40 mg Vial IVP SCH ×3 (05:18→18:19)
[2017-09-24] MEDS: Pantoprazole 40 mg EC Tab PO SCH ×2 (05:20→17:19)
[2017-09-24] MEDS: Arformoterol 15 mcg/2 ml Inh Sol IH SCH ×2 (07:30→21:48)
[2017-09-24 08:05] LABS: ALB/GLOB RATIO 1.3 (1.1-1.8); ALBUMIN 4.1 g/dL (3.0-4.8); BILIRUBIN,DIRECT 0.1 mg/dL (0.0-0.4); CALCIUM 9.1 mg/dL (8.4-10.5)
[2017-09-24] MEDS: cefTRIAXone 1 gm 1 GM/100 ML BAG IVPB SCH (09:30)
[2017-09-24] MEDS: Potassium & Sodium Phosphate PO SCH ×4 (09:30→21:48)
[2017-09-24] MEDS: POLYETHYLENE GLYCOL 3350 17 GM/Dose PACKET PO SCH (09:30)
--- NOTE | 2017-09-24 15:46 | CON ---
DATE: 09/24/2017 PULMONARY CONSULTATION HISTORY OF PRESENT ILLNESS: We were asked by Dr. Cowan, dialysis registered nurse to evaluate and treat this 72-year-old woman who was admitted to [facility] with chief complaints of shortness of breath and wheezing. The patient has a history of chronic obstructive pulmonary disease. She is a former smoker, quit in 2005. She also has a history of hypertension. She stated that the symptoms began several days prior to admission, but became worse on the day of admission. She had spent 1 day recently in the hospital with similar complaints, but her condition failed to improve. She also noted that her legs are swollen. PAST MEDICAL HISTORY: Positive for chronic obstructive pulmonary disease, hypertension and arthritis. She is status post hysterectomy. SOCIAL HISTORY: She is a former smoker, quit 6 years ago. No alcohol. No illicit drugs. FAMILY HISTORY: HTN, CAD ALLERGY: NO KNOWN ALLERGIES. REVIEW OF SYSTEMS: Conducted by reviewing all sources. Cardiovascular: No history of palpitations or chest pain. Respiratory: See history of present illness. GI: No recent nausea, vomiting or diarrhea. : No dysuria or hematuria. Extremities: History of leg swelling. The rest of the systems were reviewed and found to be negative. PHYSICAL EXAMINATION: VITAL SIGNS: Her temperature is 98.4, pulse 79, respirations 18, blood pressure is 145/63, pulse oximetry 96 on room air. HEENT: Examination of head, ears, nose and throat: Normocephalic and atraumatic. Mucous membranes moist. NECK: Supple with no adenopathy, no jugular vein distentions. RESPIRATORY: Bilateral expiratory wheezes and moderate airway obstruction. CARDIOVASCULAR: Regular rhythm. S1, S2. No S3. GI: Soft, nontender. No organomegaly. EXTREMITIES: No pedal edema. SKIN: No acute skin rash. NEUROLOGIC: Limited at present time. PULMONARY: Has been only abnormal with bilateral wheezing and moderate obstruction. LABORATORY DATA: I personally reviewed her chest x-ray, which did not show any acute infiltrates. The heart is borderline enlarged. The lungs are clear, both PA and lateral. ASSESSMENT: 1. Exacerbation of chronic obstructive pulmonary disease. 2. Moderate bronchospasm. 3. History of hypertension. PLAN: The patient was started on antibiotics. Intravenous steroids are being administered. She is on inhaled steroids as well as bronchodilator therapy. Her condition is starting to improve with that. Today's chemistries are normal. CBC is not done. We will follow closely. Tray Nicholson MD [facility]
--- NOTE | 2017-09-24 18:02 | CON ---
DATE: 09/24/2017 CARDIOLOGY CONSULTATION HISTORY: The patient is a 72-year-old woman who presents with dyspnea. The patient's past medical history includes severe COPD from smoking in the past. She has documented pulmonary hypertension. She denies chest pain. The patient in the past has been told of aortic valve disease without critical aortic stenosis in the past. She denies hypertension or diabetes mellitus. REVIEW OF SYSTEMS: Fourteen-point review of systems is reviewed in detail. Other than her dyspnea, no cardiac symptoms are noted. PHYSICAL EXAMINATION: VITAL SIGNS: Blood pressure is 150/76, heart rate is in the 80s. NECK: Negative JVD. LUNGS: Decreased breath sounds bilaterally. HEART: Reveals S1, S2 with a II/ systolic ejection murmur. EXTREMITIES: Without edema. LABORATORY DATA: EKG shows normal sinus rhythm with no acute changes. Hemoglobin is 11.5. Chemistries: BUN and creatinine are unremarkable. The echocardiogram reveals good LV function with combined aortic stenosis and aortic insufficiency. Pulmonary hypertension is noted. IMPRESSION: 1. Dyspnea, which is secondary to her chronic obstructive pulmonary disease. 2. Hypertension. 3. Pulmonary hypertension. 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 5. Obesity. PLAN: Given these findings, we will need to look into her aortic valve again in the near future with serial echoes, looking for progression for critical aortic stenosis. Her dyspnea needs to be managed with controlling her exacerbation of her COPD. Allen Reilly MD
[2017-09-24] MEDS: Budesonide 0.5 mg/2 ml Inhal Susp UD IH SCH (21:49)
--- NOTE | 2017-09-25 01:47 | PN ---
DATE: 09/24/2017 SUBJECTIVE: The patient is seen in room 561, bed 2. Patient is lying in the bed, the patient was then later on sitting up in the bed. Patient did have episodic shortness of breath on exertion. Patient appeared to be winded when patient was moved around and patient has been refusing SCDs and MURPHY stockings despite my recommendation. Patient was found to have been having outside food at the nightstand and on the table. Patient was advised not to bring any outside food. The patient was noted to have a bottle of soda and potato chips. PHYSICAL EXAMINATION: VITAL SIGNS: T-max 97.7, pulse 86, 82, 84; blood pressure in the last 24-hour 145/71, 143/77, 150/76, 155/79; respiration 20 to 21, O2 sat 95% to 99%. HEENT: Head examination, normocephalic and atraumatic. HEENT examination shows pink conjunctivae. Anicteric sclerae. No oropharyngeal lesion. NECK: No neck rigidity. CHEST: Kyphosis. LUNGS: Show decreased air entry and decreased air exchange. Occasional rhonchi. No wheezing noted today. CARDIOVASCULAR: S1 and S2, regular rhythm. Positive systolic murmur at left sternal border, right second intercostal space, left second intercostal space. ABDOMEN: Obese, protuberant. Positive bowel sounds. No hepatosplenomegaly noted. GENITALIA: Female. RECTAL: Deferred. EXTREMITIES: Show 1+ pitting edema of the lower extremity. MUSCULOSKELETAL: Shows a body mass index of 40. NEUROLOGIC: The patient is alert, awake, oriented x3. Cranial nerves II through XII grossly intact. Gait examination is not tested. Motor strength is 5/5 in upper and lower extremity. DIAGNOSTICS: On 09/24/2017, sodium 142, potassium 4.2, chloride 104, CO2 of 24, anion gap 19, BUN 30, creatinine 1.2, GFR 54, glucose 138, hemoglobin A1c 6.5, calcium 9.1, phosphorus 4.5, magnesium 1.8. AST is down to 38. Vitamin D 25-hydroxy 35, cholesterol 159, LDL 88, HDL 50. TSH is slightly low at 0.24. Venous Doppler of both lower extremities was negative for DVT. Echocardiogram was reviewed. Ejection fraction 71%. Right ventricular systolic pressure 56 mmHg, grade 1 abnormal relaxation pattern, concentric left ventricular hypertrophy, mild aortic regurgitation with mildly thickened aortic valve, mild mitral regurgitation with mildly thickened mitral valve, moderate pulmonary hypertension and moderate tricuspid regurgitation. IMPRESSION AND PLAN: 1. Acute exacerbation of chronic obstructive pulmonary disease with bronchospasm, wheezing and dyspnea on exertion and shortness of breath. 2. Acute exacerbation of chronic obstructive pulmonary disease with bronchospasm (slow resolving). 3. Hypertension. 4. Dyspnea on exertion. 5. Dietary noncompliance. 6. Morbid obesity with elevated body mass index of 40. 7. Leukocytosis with granulocytosis. 8. Normocytic anemia. 9. Acute kidney injury (resolved). 10 . 11. Prerenal kidney injury. 12. Prediabetes with hyperglycemia and hemoglobin A1c of 6.5. 13. Hyperuricemia. 14. Mild transaminitis. 15. Mild hyperlipidemia. 16. Left ventricular ejection fraction of 72%. 17. Concentric left ventricular hypertrophy with grade 1 abnormal relaxation pattern. 18. Mild aortic regurgitation with mildly thickened aortic valve. 19. Mild mitral regurgitation with mildly thickened mitral valve. 20. Moderate pulmonary hypertension with moderate tricuspid regurgitation. 21. Mild pulmonic valvular regurgitation. 22. Trace loculated anterior pericardial effusion. 23. Bilateral lower extremity venous stasis. 24. Hypertension. 25. Severely symptomatic acute exacerbation of chronic obstructive pulmonary disease. 26. Constipation. 27. Hypophosphatemia. 1. Acute exacerbation of chronic obstructive pulmonary disease with bronchospasm, wheezing and shortness of breath. 2. Leukocytosis with granulocytosis. 3. Hypokalemia. 4. Hypophosphatemia. 5. Hypertension. 6. Morbid obesity with elevated body mass index of 40. 7. Hypokalemia. 8. Acute kidney injury with prerenal kidney injury. 9. Hyperglycemia. 10. Hyperuricemia. 11. Hypophosphatemia. 12. Leukocytosis with granulocytosis. 13. Mild normocytic anemia. 14. Bilateral lower extremity venous stasis of the lower extremity. 15. History of pulmonary hypertension with elevated right ventricular systolic pressure of greater than 40 mmHg. 16. Left ventricular ejection fraction of 71%. 17. Pulmonary hypertension with right ventricular systolic pressure of 56 mmHg. 18. 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 19. History of former nicotine dependence. 20. Morbid obesity. 21. History of prediabetes with hemoglobin A1c of 6.3. 23. Sigmoid colon diverticulosis. 24. History of recurrent acute exacerbation of chronic obstructive pulmonary disease and emphysema. 25. Ketonuria, microscopic hematuria, bacteriuria. 26. History of tonsillectomy, hysterectomy. 27. 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 28. History of former nicotine dependence. 29. History of chronic obstructive pulmonary disease. Plan at this time, patient is seen by Cardiology, recommends further investigation into valvular heart disease and treatment of chronic obstructive pulmonary disease. Patient is seen by Pulmonary. Recommendation is to continue steroids, antibiotics and bronchodilators. Patient has been ordered serial labs. Patient has been strictly advised against bringing outside food for her meals. Patient is advised to comply with SCDs, MURPHY stockings, out of bed, ambulation. CURRENT CONSULTATION: Cardiology, Pulmonary. Next referral, TCU. CURRENT MEDICATIONS: 1. Brovana 15 mcg every 12 hours. 2. Cardizem increased to 60 mg every 8 hours. 3. Colace 100 mg three times a day. 4. Vibramycin 100 mg IV every 12 hours. 5. DuoNeb nebulizer every 6 hours [id number] and every 2 hours p.r.n. 6. Heparin 5000 subcu every 8 hours. 7. Lasix 20 mg IV daily. 8. MiraLax 17 g daily. 9. Neutra-Phos 1 packet four times daily for total 8 doses. 10. Protonix 40 mg daily. 11. Pulmicort nebulizer 0.5 mg every 12 hours. 12. Rocephin 1 g IV daily. 13. Solu-Medrol 40 mg IV every 8 hours. 14. Zetia 10 mg daily. 15. Allopurinol 300 mg daily. Chest PT, incentive spirometry, oxygen 2 liters continuous. Out of bed, MURPHY stockings, SCDs, occupational therapy, physical therapy noted. Patient is seen by Senior Site Manager. Patient is seen by physical therapist. Physical therapy recommendation, discharge recommendation is home. The patient was updated about her condition, diagnoses, treatment plan, management plan at length. All questions concerned answered to patient's satisfaction. Patient advised about need for Cardiology, Pulmonary evaluation and further diagnostic therapeutic intervention and testing, which she acknowledged understand. Dictated and electronically signed, not read. James Cowan MD [facility] # [id number] [place]
[2017-09-25] MEDS: Albuterol-Ipratrop 3 mg / 0.5 (3 ml) UD IH SCH ×2 (02:00→07:01)
[2017-09-25] MEDS: Albuterol-Ipratrop 3 mg / 0.5 (3 ml) UD IH PRN ×2 (03:55→18:55)
[2017-09-25] MEDS: MethylPREDNISolone 40 mg Vial IVP SCH (05:22)
[2017-09-25] MEDS: Pantoprazole 40 mg EC Tab PO SCH ×2 (05:24→16:36)
[2017-09-25] MEDS: Budesonide 0.5 mg/2 ml Inhal Susp UD IH SCH ×3 (07:01→19:05)
[2017-09-25] MEDS: Arformoterol 15 mcg/2 ml Inh Sol IH SCH ×3 (07:01→19:05)
[2017-09-25 07:44] LABS: ALB/GLOB RATIO 1.3 (1.1-1.8); ALBUMIN 3.9 g/dL (3.0-4.8); BILIRUBIN,DIRECT 0.1 mg/dL (0.0-0.4); CALCIUM 8.9 mg/dL (8.4-10.5)
[2017-09-25] MEDS: Potassium & Sodium Phosphate PO SCH (09:37)
[2017-09-25] MEDS: cefTRIAXone 1 gm 1 GM/100 ML BAG IVPB SCH (09:37)
[2017-09-25] MEDS: POLYETHYLENE GLYCOL 3350 17 GM/Dose PACKET PO SCH (09:41)
[2017-09-25] MEDS ORDERED: MethylPREDNISolone 40 mg Vial IVP SCH (14:00)
--- NOTE | 2017-09-25 14:00 | PN ---
DATE: 09/25/2017 SUBJECTIVE: The patient is seen lying in the bed in room 570 bed 2. Overnight nurses' notes were reviewed. The patient ambulated with Physical Therapy in the hallway. According to the nurses' note, the patient had dyspnea on exertion. OBJECTIVE: VITAL SIGNS: T-max 97.9; heart rate 73, 75, 71; blood pressure 114/56, 129/75, 114/56, 142/79, 147/72, 155/79, 150/76; respiration 20, O2 sat 98-100% on 2 liters nasal cannula. HEENT: Head examination is normocephalic, atraumatic. HEENT examination shows pinkish conjunctivae. Anicteric sclerae. No oropharyngeal lesion. No neck rigidity. CHEST: Kyphosis, decreased air entry noted. No audible wheeze at present. Poor air entry noted. CARDIOVASCULAR: S1, S2. Regular rhythm. Positive systolic murmur, left sternal border, right second intercostal space, left second intercostal space. ABDOMEN: Obese, protuberant. Positive bowel sounds. GENITALIA: Female. RECTAL: Examination is deferred. EXTREMITIES: Shows positive MURPHY stockings, positive SCDs. Lower extremity pitting edema and swelling has significantly decreased. MUSCULOSKELETAL: Examination shows a body mass index of 40. NEUROLOGIC: The patient is alert, awake, oriented x3. Cranial nerves II-XII grossly intact. Gait examination is not tested. VASCULAR: Examination, palpate pulses. PSYCHIATRIC: Examination is not applicable. DIAGNOSTIC DATA: Sodium 143, potassium 3.7, chloride 102, CO2 27, anion gap 17, BUN 31, creatinine 1.4, GFR 45, glucose 128, phosphorus 4.6, magnesium is 1.9. AST is 48. Rest of the LFTs are normal. IMPRESSION AND PLAN: 1. Acute exacerbation of chronic obstructive pulmonary disease with bronchospasm, wheezing and dyspnea on exertion; shortness of breath, slow resolving. 2. Hypertension. 3. Dietary noncompliance. 4. Transient hypotension. 5. History of hypertension. 6. Morbid obesity with elevated body mass index of 40. 7. Leukocytosis with granulocytosis. 8. [id number] kidney injury and chronic kidney disease stage II to III. 9. Steroid-induced hyperglycemia with prediabetes and hemoglobin A1c of 6.5. 10. Hyperuricemia. 11. Hypophosphatemia. 12. Hyperlipidemia. 13. Concentric left ventricular hypertrophy with left ventricular ejection fraction of 72%. 14. Grade 1 abnormal relaxation pattern. 15. Mildly thickened aortic valve with mild aortic regurgitation. 16. Mild mitral regurgitation with mildly thickened mitral valve. 17. Moderate pulmonary hypertension with moderate tricuspid regurgitation. 18. Mild pulmonic regurgitation. 1. Acute exacerbation of chronic obstructive pulmonary disease with bronchospasm, wheezing and dyspnea on exertion and shortness of breath. 2. Acute exacerbation of chronic obstructive pulmonary disease with bronchospasm (slow resolving). 3. Hypertension. 4. Dyspnea on exertion. 5. Dietary noncompliance. 6. Morbid obesity with elevated body mass index of 40. 7. Leukocytosis with granulocytosis. 8. Normocytic anemia. 9. Acute kidney injury (resolved). 10 . 11. Prerenal kidney injury. 12. Prediabetes with hyperglycemia and hemoglobin A1c of 6.5. 13. Hyperuricemia. 14. Mild transaminitis. 15. Mild hyperlipidemia. 16. Left ventricular ejection fraction of 72%. 17. Concentric left ventricular hypertrophy with grade 1 abnormal relaxation pattern. 18. Mild aortic regurgitation with mildly thickened aortic valve. 19. Mild mitral regurgitation with mildly thickened mitral valve. 20. Moderate pulmonary hypertension with moderate tricuspid regurgitation. 21. Mild pulmonic valvular regurgitation. 22. Trace loculated anterior pericardial effusion. 23. Bilateral lower extremity venous stasis. 24. Hypertension. 25. Severely symptomatic acute exacerbation of chronic obstructive pulmonary disease. 26. Constipation. 27. Hypophosphatemia. 1. Acute exacerbation of chronic obstructive pulmonary disease with bronchospasm, wheezing and shortness of breath. 2. Leukocytosis with granulocytosis. 3. Hypokalemia. 4. Hypophosphatemia. 5. Hypertension. 6. Morbid obesity with elevated body mass index of 40. 7. Hypokalemia. 8. Acute kidney injury with prerenal kidney injury. 9. Hyperglycemia. 10. Hyperuricemia. 11. Hypophosphatemia. 12. Leukocytosis with granulocytosis. 13. Mild normocytic anemia. 14. Bilateral lower extremity venous stasis of the lower extremity. 15. History of pulmonary hypertension with elevated right ventricular systolic pressure of greater than 40 mmHg. 16. Left ventricular ejection fraction of 71%. 17. Pulmonary hypertension with right ventricular systolic pressure of 56 mmHg. 18. 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 19. History of former nicotine dependence. 20. Morbid obesity. 21. History of prediabetes with hemoglobin A1c of 6.3. 23. Sigmoid colon diverticulosis. 24. History of recurrent acute exacerbation of chronic obstructive pulmonary disease and emphysema. 25. Ketonuria, microscopic hematuria, bacteriuria. 26. History of tonsillectomy, hysterectomy. 27. 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 28. History of former nicotine dependence. 29. History of chronic obstructive pulmonary disease. PLAN: At this time, the patient has been ordered to repeat labs. CURRENT CONSULTATIONS: Cardiology and Pulmonary. The patient has been ordered Transitional Care Unit evaluation. CURRENT MEDICATIONS: Brovana 15 mcg nebulizer treatment twice a day, Cardizem 60 mg every 8 hours, Colace 100 mg three times a day, doxycycline 100 mg IV every 12 hours, DuoNeb nebulizer every 6 hours round the clock every 2 hours p.r.n., heparin 5000 subcutaneous every 8 hours, Lasix 20 mg IV push daily, MiraLax 17 g daily, Neutra-Phos 1 packet four times a day to finish today, Protonix 40 mg daily, Pulmicort nebulizer 0.5 mg every 12 hours, Rocephin 1 g IV daily, Solu-Medrol 40 mg IV every 8 hours, which will be kept on the same dose as the patient's bronchospasm has not started to resolve and the patient still has decreased air entry. The patient is on Zetia 10 mg daily, allopurinol 300 mg daily, chest PT, oxygen 2 liters nasal cannula, head of the bed at 30 degrees, out of bed, MURPHY stockings, SCDs, occupational therapy, physical therapy . The patient seen by physical therapist. Their recommendation is to discharged home upon acute hospitalization. The patient updated about her condition, diagnosis, test results, and recommendations. Dictated and electronically signed, not read. James Cowan MD [facility]
[2017-09-25] MEDS: MethylPREDNISolone 40 mg Vial IV SCH (21:46)
[2017-09-26] MEDS: Pantoprazole 40 mg EC Tab PO SCH (05:05)
[2017-09-26] MEDS: Albuterol-Ipratrop 3 mg / 0.5 (3 ml) UD IH PRN (07:20)
[2017-09-26] MEDS: Arformoterol 15 mcg/2 ml Inh Sol IH SCH (07:20)
[2017-09-26] MEDS: Budesonide 0.5 mg/2 ml Inhal Susp UD IH SCH (07:20)
[2017-09-26 07:39] VITALS: PULSE 75; RESP 20; TEMP 98; O2SAT 100
[2017-09-26 07:57] LABS: ALB/GLOB RATIO 1.4 (1.1-1.8); ALBUMIN 3.9 g/dL (3.0-4.8); ALT/SGPT 39 U/L (7-56); AST/SGOT 42 U/L (14-36); BLOOD UREA NITROGEN 27 mg/dL (7-21); CALCIUM 9.1 mg/dL (8.4-10.5); GFR AFRICAN-AMERICAN 49; GFR NON-AFRICAN AMERICAN 40
[2017-09-26] MEDS: cefTRIAXone 1 gm 1 GM/100 ML BAG IVPB SCH (10:39)
[2017-09-26] MEDS: POLYETHYLENE GLYCOL 3350 17 GM/Dose PACKET PO SCH (10:39)
[2017-09-26] MEDS: MethylPREDNISolone 40 mg Vial IV SCH (10:40)
[2017-09-26 10:46] VITALS: BP 140/70
--- NOTE | 2017-09-26 12:19 | PN ---
DATE: 09/26/2017 PULMONARY PROGRESS NOTE LOCATION: Room 561, bed 2. SUBJECTIVE: The patient was seen yesterday in pulmonary reevaluation. The note is not recorded on the chart. It should be located with [id number]. The patient remains comfortable this morning and is feeling better than she had previously. She was resting yesterday and this morning, she is awake and alert, watching television, feeling much better. The patient states that she is markedly improved since admission. PHYSICAL EXAMINATION: GENERAL: She is resting comfortably. VITAL SIGNS: She remains afebrile with a pulse of 80, respiratory rate 16, blood pressure 140/63, oxygen saturation 96% on room air. HEENT: Normocephalic, atraumatic. NECK: Supple. No JVD. LUNGS: Respiratory status, distant breath sounds, no longer wheezing or any signs of airway obstruction. CARDIOVASCULAR: Regular rhythm. S1, S2. No murmur, gallop or rub. ABDOMEN: Soft. Bowel sounds normoactive without mass, guarding, rebound or organomegaly. EXTREMITIES: Reveal no clubbing, cyanosis or edema. There is no Tony sign. SKIN: No rash or excoriation. DATA: No new laboratory data is available at this time. ASSESSMENT: 1. Status post moderate bronchospasm. 2. Exacerbation of chronic obstructive pulmonary disease, resolved. PLAN: Continue to decrease corticosteroids and allow the patient to manipulate on her feet in the hospital, possibly rehab. There were no further interventions required, but the patient should have a followup pulmonary evaluation following discharge. We will be happy to see her at that time as required. Please feel free to contact me if any further intervention is required. At this time, the patient will be on her continued albuterol and ipratropium and budesonide antibiotics. We will continue to lower the corticosteroids and change to p.o., gentle oral medications. Thank you for the opportunity to evaluate this patient. Danie Graves MD
--- NOTE | 2017-09-27 09:19 | PN ---
DATE: 09/25/2017 PULMONARY PROGRESS NOTE LOCATION: [facility], bed 2. SUBJECTIVE: Patient is resting comfortably in bed, in no acute distress. I discussed the case with Dr. Tray Nicholson and the patient yesterday. She is markedly improved on evaluation yesterday. PHYSICAL EXAMINATION: GENERAL: Patient is comfortable. Resting comfortably in bed, afebrile. VITAL SIGNS: Pulse 80, respiratory rate 16, blood pressure 140/60, pulse ox 97%. HEENT: Normocephalic, atraumatic. NECK: Supple. No JVD, no lymphadenopathy, no bruits. CARDIOVASCULAR: Regular rhythm. S1 and S2 without murmur, gallop, or rub. CHEST: No rales noted. ABDOMEN: Soft. Bowel sounds normoactive without mass, guarding, rebound or organomegaly. EXTREMITIES: Reveal no clubbing, cyanosis, or edema. SKIN: No rash or excoriation. NEUROLOGIC: No focal findings. LABORATORY DATA: No new laboratory findings available today. ASSESSMENT: 1. Exacerbation of chronic obstructive pulmonary disease. 2. Resolved acute bronchospasm. 3. Combined asthma/emphysema, improved since admission. PLAN: Continue current medication. Decrease corticosteroids. Continue inhaled bronchodilators and inhaled corticosteroids. Close followup. We will discuss with Dr. Cowan when available. Danie Graves MD MTDD
--- NOTE | 2017-09-27 12:19 | DS ---
FINAL PROGRESS NOTE AND DISCHARGE SUMMARY HISTORY OF PRESENT ILLNESS: The patient is seen lying in the bed as usual since the day of admission. The patient was seen in room 570 bed 2. The patient is lying in the bed watching TV, does not appear to be in any distress. Overnight nurse's notes were reviewed. The patient stayed mostly in the bed according to the nurses' note. PHYSICAL EXAMINATION: VITAL SIGNS: T-max 98; pulse 74, 75; blood pressure 140/70, 146/72, 141/84; respirations 20, O2 sat 100%. HEENT: Head: Normocephalic, atraumatic. HEENT: Shows pink conjunctivae. Anicteric sclerae. No oropharyngeal lesion. NECK: No neck rigidity. CHEST: Kyphosis. LUNGS: Shows no wheezing, rhonchi or crackles. Improved air entry. CARDIOVASCULAR: S1, S2. Regular rhythm. Positive systolic murmur, left sternal border, right second intercostal space, left second intercostal space. ABDOMEN: Soft. Protuberant. Positive bowel sound. No hepatosplenomegaly noted. No guarding. No rigidity. No rebound tenderness. GENITALIA: Female. RECTAL: Deferred. EXTREMITIES: Shows positive SCDs and MURPHY stockings with resolution of the pitting edema. MUSCULOSKELETAL: Shows a body mass index of 39.5. Weight is above 216 pounds. LAB DATA: From 09/26, sodium 144, potassium 4, chloride 103, CO2 30, anion gap 15, BUN 27, creatinine 1.3, GFR 49, glucose 123, calcium 9.1, phosphorus 4.4, magnesium 2. LFTs: AST is 42, rest of the LFTs are normal. The patient was seen by Pulmonary today, their recommendations were noted and reinforced to the patient. The patient was seen by Cardiology, Cardiology recommendations were reinforced to the patient. The patient's pulmonary recommendations noted and reinforced to the patient. FINAL IMPRESSION, PLAN AND DISCHARGE DIAGNOSES: 1. Acute exacerbation of chronic obstructive pulmonary disease with bronchospasm, wheezing and dyspnea on exertion, resolved versus resolving. 2. Hypertension. 3. Pulmonary hypertension. 4. Morbid obesity with elevated body mass index of 40. 5. Steroid-induced leukocytosis and granulocytosis. 6. Chronic kidney disease stage III with mild acute kidney injury. 7. Steroid-induced hyperglycemia with prediabetes with hemoglobin A1c of 6.5. 8. Transient hypophosphatemia. 9. History of statin allergies. 10. Hypertensive cardiovascular disease with left ventricle ejection fraction of 72% and concentric left ventricular hypertrophy and grade 1 abnormal relaxation pattern. 11. Mildly thickened aortic valve with mild aortic regurgitation. 12. Mildly thickened mitral valve with mild mitral regurgitation. 13. Moderate pulmonary hypertension with moderate tricuspid regurgitation. 14. Mild pulmonic regurgitation. 15. 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 16. Acute exacerbation of chronic obstructive pulmonary disease and bronchospasm (resolved). 17. Sedentary lifestyle with obesity and elevated body mass index of 40. 18. History of constipation. 19. Hyperuricemia. 20. Most-likely right-sided diastolic congestive heart failure, secondary to pulmonary hypertension. 1. Acute exacerbation of chronic obstructive pulmonary disease with bronchospasm, wheezing and dyspnea on exertion; shortness of breath, slow resolving. 2. Hypertension. 3. Dietary noncompliance. 4. Transient hypotension. 5. History of hypertension. 6. Morbid obesity with elevated body mass index of 40. 7. Leukocytosis with granulocytosis. 8. Butgw-[id number] kidney injury and chronic kidney disease stage II to III. 9. Steroid-induced hyperglycemia with prediabetes and hemoglobin A1c of 6.5. 10. Hyperuricemia. 11. Hypophosphatemia. 12. Hyperlipidemia. 13. Concentric left ventricular hypertrophy with left ventricular ejection fraction of 72%. 14. Grade 1 abnormal relaxation pattern. 15. Mildly thickened aortic valve with mild aortic regurgitation. 16. Mild mitral regurgitation with mildly thickened mitral valve. 17. Moderate pulmonary hypertension with moderate tricuspid regurgitation. 18. Mild pulmonic regurgitation. 1. Acute exacerbation of chronic obstructive pulmonary disease with bronchospasm, wheezing and dyspnea on exertion and shortness of breath. 2. Acute exacerbation of chronic obstructive pulmonary disease with bronchospasm (slow resolving). 3. Hypertension. 4. Dyspnea on exertion. 5. Dietary noncompliance. 6. Morbid obesity with elevated body mass index of 40. 7. Leukocytosis with granulocytosis. 8. Normocytic anemia. 9. Acute kidney injury (resolved). 10 . 11. Prerenal kidney injury. 12. Prediabetes with hyperglycemia and hemoglobin A1c of 6.5. 13. Hyperuricemia. 14. Mild transaminitis. 15. Mild hyperlipidemia. 16. Left ventricular ejection fraction of 72%. 17. Concentric left ventricular hypertrophy with grade 1 abnormal relaxation pattern. 18. Mild aortic regurgitation with mildly thickened aortic valve. 19. Mild mitral regurgitation with mildly thickened mitral valve. 20. Moderate pulmonary hypertension with moderate tricuspid regurgitation. 21. Mild pulmonic valvular regurgitation. 22. Trace loculated anterior pericardial effusion. 23. Bilateral lower extremity venous stasis. 24. Hypertension. 25. Severely symptomatic acute exacerbation of chronic obstructive pulmonary disease. 26. Constipation. 27. Hypophosphatemia. 1. Acute exacerbation of chronic obstructive pulmonary disease with bronchospasm, wheezing and shortness of breath. 2. Leukocytosis with granulocytosis. 3. Hypokalemia. 4. Hypophosphatemia. 5. Hypertension. 6. Morbid obesity with elevated body mass index of 40. 7. Hypokalemia. 8. Acute kidney injury with prerenal kidney injury. 9. Hyperglycemia. 10. Hyperuricemia. 11. Hypophosphatemia. 12. Leukocytosis with granulocytosis. 13. Mild normocytic anemia. 14. Bilateral lower extremity venous stasis of the lower extremity. 15. History of pulmonary hypertension with elevated right ventricular systolic pressure of greater than 40 mmHg. 16. Left ventricular ejection fraction of 71%. 17. Pulmonary hypertension with right ventricular systolic pressure of 56 mmHg. 18. 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 19. History of former nicotine dependence. 20. Morbid obesity. 21. History of prediabetes with hemoglobin A1c of 6.3. 23. Sigmoid colon diverticulosis. 24. History of recurrent acute exacerbation of chronic obstructive pulmonary disease and emphysema. 25. Ketonuria, microscopic hematuria, bacteriuria. 26. History of tonsillectomy, hysterectomy. 27. 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 28. History of former nicotine dependence. 29. History of chronic obstructive pulmonary disease. PLAN: At this time, the patient's intravenous steroids was changed over to p.o. steroids by pulmonary. The patient has been cleared for discharge by pulmonary. Patient's discharge medications are as follows: 1. DuoNeb nebulizer every 6 hours [id number]. 2. Allopurinol 300 mg daily. 3. Brovana 15 mcg nebulizer every 12 hours. 4. Tessalon Perles 200 three times a day. 5. Pulmicort nebulizer 0.5 mg nebulizer every 12 hours. 6. Symbicort inhaler 80/4.5 two puffs twice a day. 7. Cardizem CD 180 mg daily. 8. Colace 100 mg three times a day. 9. Zetia 10 mg daily. 10. Lasix 40 mg daily. 11. Medrol 16 mg twice a day for 1 week, then tapering down. The patient is advised to follow up in the office for further steroid taper. 12. Protonix 40 mg daily. 13. MiraLax 17 g daily. 14. Spiriva 18 mcg daily. At present, the patient has been cleared for discharge home by Cardiology, Pulmonary. The patient is to be discharged home. Discharge followup with Dr. Cowan within 1 week. Discharge followup with Dr. Reilly within 1-2 weeks. Discharge medications as per updated ambulatory orders plus new script. Copy of the heart healthy diet to the patient upon discharge. The patient was also advised strictly about weight loss of about 50 pounds, according to her height 5 feet 2 inches, which the patient did not like the idea and was not positively responsive about that. The patient was told all the risk and consequences of her medical condition. The patient was also advised that Cardiology recommendations are to have further cardiac evaluation for her present condition, which the patient also does not seem to be interested as the patient was stating that her insurance has not been approving doctor's visit and she has difficulty finding the doctors who takes her insurance plan. The patient was advised to contact her insurance to look for specialist who participates in her insurance plan. In addition, the patient was advised to continue using the MURPHY stockings at home and at work. Time spent in the entire discharge process more than 45 minutes. Dictated and electronically signed, not read. James Cowan MD [id number]
== END 2017-09-26 13:42 | disposition home or self-care (01) | DRG 191 ==
LOC: ED 16:00 → ERH 19:01 → 2RSO 22:23 → OBSVTOIN 09-23 10:49 → 5RNO 09-23 19:44 → 5RSO 09-24 18:06
PROVIDERS: ADMIT Internal Medicine; ATTEND Internal Medicine
DX: J44.1 Chronic obstructive pulmonary disease with (acute) exacerbation (principal); I13.0 Hypertensive heart and chronic kidney disease with heart failure and stage 1 through stage 4 chronic kidney disease, or unspecified chronic kidney disease; I50.30 Unspecified diastolic (congestive) heart failure; N17.9 Acute kidney failure, unspecified; Z68.41 Body mass index [BMI] 40.0-44.9, adult; K57.30 Diverticulosis of large intestine without perforation or abscess without bleeding; D64.9 Anemia, unspecified; D72.829 Elevated white blood cell count, unspecified; E66.01 Morbid (severe) obesity due to excess calories; E78.5 Hyperlipidemia, unspecified; E83.39 Other disorders of phosphorus metabolism; E87.6 Hypokalemia; I27.20 Pulmonary hypertension, unspecified; I08.8 Other rheumatic multiple valve diseases; I87.8 Other specified disorders of veins; K59.00 Constipation, unspecified; N18.3 Chronic kidney disease, stage 3 (moderate); R31.29 Other microscopic hematuria; R73.03 Prediabetes; T38.0X5A Adverse effect of glucocorticoids and synthetic analogues, initial encounter; Z87.891 Personal history of nicotine dependence; Z90.710 Acquired absence of both cervix and uterus; Z91.11 Patient's noncompliance with dietary regimen; E79.0 Hyperuricemia without signs of inflammatory arthritis and tophaceous disease

== ENCOUNTER 2017-12-19 17:22 | Inpatient (IN) | payer OTHER, MEDICARE ==
[2017-12-19 17:25] VITALS: BMI 39.4
[2017-12-19] MEDS ORDERED: Albuterol 0.083% Inhal Sol (2.5 mg/3 mL) UD INH STA (17:27)
[2017-12-19] MEDS ORDERED: Albuterol-Ipratrop 3 mg / 0.5 (3 ml) UD IH STA (17:27)
[2017-12-19] MEDS ORDERED: cefTRIAXone 1 gm 1 GM/100 ML BAG IVPB STA (17:56)
[2017-12-19] MEDS ORDERED: Azithromycin 500MG/NS 250ml 500 MG/250 ML BAG IVPB STA (17:56)
--- NOTE | 2017-12-19 18:00 | ED PDOC ---
Arrival/HPI - General Chief Complaint: Shortness Of Breath Time Seen by Provider: 12/19/17 17:25 Historian: Patient - History of Present Illness Narrative History of Present Illness (Text): 12/19/17 17:27 72 year old female, with past medical history of COPD, HTN and arthritis presents to the Emergency department complaining of shortness of breath that is typical of her COPD associated with productive cough since . Patient states that her symptoms began about 2-3 days ago, which gradually worsened especially with exertion. Patient informs no improvement with nebulizer today prompting her to present to the Emergency department for evaluation. Patient denies fevers, chills, headache, dizziness, chest pain, abdominal pain, nausea, vomiting, diarrhea, back pain, neck pain, or any other complaints. Patient denies history of smoking. PMD: Dr. Cowan Time/Duration: < week Symptom Onset: Gradual Symptom Course: Unchanged Activities at Onset: Light Context: Home Past Medical History - Provider Review Nursing Documentation Reviewed: Yes - Infectious Disease Hx of Infectious Diseases: None - Tetanus Immunization Tetanus Immunization: Up to Date - Cardiac Hx Hypertension: Yes - Pulmonary Hx Chronic Obstructive Pulmonary Disease (COPD): Yes - Neurological Hx Neurological Disorder: No - HEENT Hx HEENT Disorder: No - Renal Hx Renal Failure: Yes (CKD) - Endocrine/Metabolic Hx Endocrine Disorders: No - Hematological/Oncological Hx Blood Disorders: No - Integumentary Hx Dermatological Disorder: No - Musculoskeletal/Rheumatological Hx Arthritis: Yes - Gastrointestinal Hx Gastrointestinal Disorders: No - Genitourinary/Gynecological Hx Genitourinary Disorders: No - Psychiatric Hx Psychophysiologic Disorder: No Hx Depression: No Hx Emotional Abuse: No Hx Physical Abuse: No Hx Substance Use: No - Surgical History Hx Hysterectomy: Yes - Anesthesia Hx Anesthesia: No Hx Anesthesia Reactions: No - Suicidal Assessment Feels Threatened In Home Enviroment: No Family/Social History - Physician Review Nursing Documentation Reviewed: Yes Family/Social History: No Known Family HX Smoking Status: Former Smoker Hx Alcohol Use: No Hx Substance Use: No Hx Substance Use Treatment: No Allergies/Home Meds Allergies/Adverse Reactions: Allergies statins Allergy (Uncoded 12/19/17 17:34) stinging sensation in legs Home Medications: Home Meds Medication Instructions Recorded Confirmed Tiotropium [Spiriva] 18 mcg IH DAILY 04/30/18 05/30/18 Review of Systems - Physician Review All systems were reviewed & negative as marked: Yes - Review of Systems Constitutional: absent: Fevers Respiratory: SOB, Cough Cardiovascular: absent: Chest Pain Gastrointestinal: absent: Abdominal Pain, Diarrhea, Nausea, Vomiting Musculoskeletal: absent: Back Pain, Neck Pain Neurological: absent: Headache, Dizziness Physical Exam Vital Signs Reviewed: Yes Vital Signs Temp Pulse Resp BP Pulse Ox 12/19/17 19:08 92 H 18 139/70 92 L 12/19/17 17:27 20 98 12/19/17 17:25 98.2 F 94 H 24 140/80 95 Temperature: Afebrile Blood Pressure: Normal Pulse: Regular Respiratory Rate: Normal Appearance: Positive for: Well-Appearing, Non-Toxic, Comfortable (speaking in full sentences) Pain Distress: None Mental Status: Positive for: Alert and Oriented X 3 - Systems Exam Head: Present: Atraumatic, Normocephalic Pupils: Present: PERRL Extroacular Muscles: Present: EOMI Conjunctiva: Present: Normal Mouth: Present: Moist Mucous Membranes Neck: Present: Normal Range of Motion Respiratory/Chest: Present: Good Air Exchange, Wheezes (all lung casanova.). No: Respiratory Distress, Accessory Muscle Use Cardiovascular: Present: Regular Rate and Rhythm, Normal S1, S2. No: Murmurs Abdomen: No: Tenderness, Distention, Peritoneal Signs Back: Present: Normal Inspection Upper Extremity: Present: Normal Inspection. No: Cyanosis, Edema Lower Extremity: Present: Normal Inspection. No: Edema Neurological: Present: GCS=15, CN II-XII Intact, Speech Normal Skin: Present: Warm, Dry, Normal Color. No: Rashes Psychiatric: Present: Alert, Oriented x 3, Normal Insight, Normal Concentration Medical Decision Making ED Course and Treatment: 12/19/17 17:27 Impression: 72 year old female presents to the Emergency department complaining of shortness of breath. Differential Diagnosis included but are not limited to:COPD exacerbation Plan: -- VBG -- EKG -- Labs -- Chest X-ray -- Albuterol -- Solumedrol -- Blood Culture -- Urine Culture -- Reassess and disposition Prior Visits: Notes and results from previous visits were reviewed. Progress Notes: 12/19/17 17:27 EKG: Ordered, reviewed, and independently interpreted the EKG. Rate : 92 BPM Rhythm : NSR Interpretation : Sinus rhythm with PACs. 12/19/17 18:00 Chest X-ray reviewed, shows right lower lobe infiltrate. 12/19/17 19:[address] Cowan, who is aware and agrees with Emergency department plan, accepts admission to the hospital. - Lab Interpretations Lab Results: 12/19/17 17:35 12/19/17 17:35 Lab Results 12/19/17 17:50: pO2 47, VBG pH 7.42, VBG pCO2 51.0, VBG HCO3 33.1 H, VBG Total CO2 34.7 H, VBG O2 Sat (Calc) 85.8 H, VBG Base Excess 7.2 H, VBG Potassium 3.4 L , Glucose 103, Lactate 1.6, FiO2 21.0, Sodium 144.0, Chloride 107.0, Venous Blood Potassium 3.4 L 12/19/17 17:35: Sodium 146, Potassium 3.3 L, Chloride 102, Carbon Dioxide 31, Anion Gap 15, BUN 13, Creatinine 1.0, Est GFR ( Amer) > 60, Est GFR (Non- Af Amer) 55, Random Glucose 105, Calcium 9.7, Phosphorus 3.7, Magnesium 1.9, Total Bilirubin 0.4, AST 36, ALT 24, Alkaline Phosphatase 104, Lactate Dehydrogenase 546, Total Creatine Kinase 351 H, CK-MB (CK-2) 1.8, CK-MB (CK-2) % Cancelled, Troponin I < 0.01, NT-Pro-B Natriuret Pep 22.5, Total Protein 7.7, Albumin 4.5, Globulin 3.2, Albumin/Globulin Ratio 1.4 12/19/17 17:35: PT 12.1, INR 1.06 12/19/17 17:35: WBC 10.0 D, RBC 4.35, Hgb 12.4, Hct 36.8, MCV 84.6, MCH 28.5, MCHC 33.7, RDW 14.8 H, Plt Count 316, MPV 9.3, Gran % 62.0, Lymph % (Auto) 27.6 , [place] % (Auto) 3.6, Eos % (Auto) 6.5 H, Baso % (Auto) 0.3, Gran # 6.21, Lymph # (Auto) 2.8, [place] # (Auto) 0.4, Eos # (Auto) 0.7, Baso # (Auto) 0.03 - RAD Interpretation Radiology Orders: 12/19/17 17:27 CHEST PORTABLE [RAD] Stat - Medication Orders Current Medication Orders: Azithromycin (Zithromax 500mg In Ns) 500 mg in 250 mls @ 167 mls/hr IVPB STAT STA PRN Reason: Protocol Stop: 12/19/17 19:25 Last Admin: 12/19/17 19:02 Dose: 167 mls/hr eMAR Start Stop Document 12/19/17 19:02 EWO (Rec: 12/19/17 19:02 [email or web address] [id number]) Intravenous Solution Start Date 12/19/17 Start Time 19:02 End Date 12/19/17 End time 20:30 Total Infusion Time 88 Discontinued Medications Albuterol Sulfate (Albuterol 0.083% Inhal [place] (2.5 Mg/3 Ml) Ud) 5 mg INH STAT STA Stop: 12/19/17 17:28 Last Admin: 12/19/17 17:35 Dose: 5 mg Albuterol/Ipratropium (Duoneb 3 Mg/0.5 Mg (3 Ml) Ud) 3 ml IH STAT STA Stop: 12/19/17 17:28 Last Admin: 12/19/17 17:35 Dose: 3 ml Ceftriaxone Sodium (Rocephin 1 Gram Ivpb) 1 gm in 100 mls @ 200 mls/hr IVPB STAT STA PRN Reason: Protocol Stop: 12/19/17 18:25 Last Admin: 12/19/17 18:09 Dose: 200 mls/hr eMAR Start Stop Document 12/19/17 18:09 EWO (Rec: 12/19/17 18:09 [email or web address] [id number]) Intravenous Solution Start Date 12/19/17 Start Time 18:09 End Date 12/19/17 End time 18:39 Total Infusion Time 30 Methylprednisolone (Solu-Medrol) 125 mg IVP STAT STA Stop: 12/19/17 17:28 Last Admin: 12/19/17 17:35 Dose: 125 mg IVP Administration Document 12/19/17 17:35 EWO (Rec: 12/19/17 17:35 [id number]) Charges for Administration # of IVP Administrations 1 - Scribe Statement The provider has reviewed the documentation as recorded by the Kiranibe Calvin Grimaldo. All medical record entries made by the Kiranibe were at my direction and personally dictated by me. I have reviewed the chart and agree that the record accurately reflects my personal performance of the history, physical exam, medical decision making, and the department course for this patient. I have also personally directed, reviewed, and agree with the discharge instructions and disposition. Disposition/Present on Arrival - Present on Arrival Any Indicators Present on Arrival: No History of DVT/PE: No History of Uncontrolled Diabetes: No Urinary Catheter: No History of Decub. Ulcer: No History Surgical Site Infection Following: None - Disposition Have Diagnosis and Disposition been Completed?: Yes Diagnosis: COPD (chronic obstructive pulmonary disease), COPD exacerbation, Pneumonia Disposition: HOSPITALIZED Disposition Time: 19:08 Patient Plan: Admission Patient Problems: Current Active Problems Problem Status Onset COPD (chronic obstructive pulmonary disease) Acute COPD exacerbation Acute Pneumonia Acute Condition: FAIR Referrals: Carrie Ovalles MD [Primary Care Provider] - Follow up with primary Forms: [employer] ([place]ux[place]ish)
[2017-12-19 18:10] LABS: BASO # 0.03 K/mm3 (0.0-2.0); BASO % 0.3 % (0.0-3.0); EOS # 0.7 (0.0-0.7); EOS % 6.5 % (1.5-5.0); GRAN # 6.21 (1.4-6.5); HEMOGLOBIN 12.4 g/dL (12.0-16.0); LYMPH # 2.8 (1.2-3.4); LYMPH % 27.6 % (22.0-35.0); MEAN CELL VOLUME 84.6 fl (80.0-105.0); MEAN CORPUSCULAR HEMOGLOBIN 28.5 pg (25.0-35.0); MEAN CORPUSCULAR HGB CONC 33.7 g/dl (31.0-37.0); MEAN PLATELET VOLUME 9.3 fl (7.0-11.0); MONO # 0.4 (0.1-0.6); MONO % 3.6 % (1.0-6.0); RBC 4.35 10^6/uL (3.5-6.1); RED CELL DISTRIBUTION WIDTH 14.8 % (11.5-14.5)
[2017-12-19 18:20] LABS: INR 1.06; PROTHROMBIN TIME 12.1 SECONDS (9.4-12.5)
[2017-12-19 18:31] LABS: ALB/GLOB RATIO 1.4 (1.1-1.8); ALBUMIN 4.5 g/dL (3.0-4.8); ALT/SGPT 24 U/L (7-56); AST/SGOT 36 U/L (14-36); BLOOD UREA NITROGEN 13 mg/dL (7-21); CALCIUM 9.7 mg/dL (8.4-10.5); GFR NON-AFRICAN AMERICAN 55
[2017-12-19 18:39] LABS: B-TYPE NATRIURETIC PEPTIDE 22.5 pg/mL (0-450); TROPONIN I < 0.01 ng/mL
[2017-12-19 18:47] LABS: VENOUS BLOOD GAS BASE EXCESS 7.2 mmol/L (0.0-2.0); VENOUS BLOOD GAS PO2 47 mm/Hg (30-55); VENOUS BLOOD PH 7.42 (7.32-7.43)
[2017-12-19 18:57] LABS: CK-MB 1.8 ng/mL (0.0-3.6)
--- NOTE | 2017-12-19 19:44 | CP.PCM.HP ---
History of Present Illness - History of Present Illness History of Present Illness: Jamison Mcconnell PGY1 H&P for Dr. Cowan Ms. Ramachandran is a 72yo F PMH COPD, HTN, and arthritis who presents to ED with shortness of breath. She complains of shortness of breath and cough with phlegm for 4 days. She reports previous history of this. She reports the shortness of breath was only upon activity, not at rest. She said she had been using her inhaler and medications at home, with no improvement of symptoms. She denies any dizziness, blurry vision, chest pain, abdominal pain, vomiting, diarrhea, dysuria, or swelling. PMH: COPD, HTN, arthritis PSH: hysterectomy, tonsilectomy SocH: former smoker quit 7 y ago, denies alcohol use, illicit drug use Allergy: statins PMD: Dr. Alexander Present on Admission - Present on Admission Any Indicators Present on Admission: No Review of Systems - Constitutional Constitutional: As Per HPI - EENT Eyes: As Per HPI - Cardiovascular Cardiovascular: As Per HPI - Respiratory Respiratory: As Per HPI - Gastrointestinal Gastrointestinal: As Per HPI - Genitourinary Genitourinary: As Per HPI Past Patient History - Infectious Disease Hx of Infectious Diseases: None - Tetanus Immunizations Tetanus Immunization: Up to Date - Past Social History Smoking Status: Former Smoker - CARDIAC Hx Hypertension: Yes - PULMONARY Hx Chronic Obstructive Pulmonary Disease (COPD): Yes - NEUROLOGICAL Hx Neurological Disorder: No - HEENT Hx HEENT Problems: No - RENAL Hx Renal Failure: Yes (CKD) - ENDOCRINE/METABOLIC Hx Endocrine Disorders: No - HEMATOLOGICAL/ONCOLOGICAL Hx Blood Disorders: No - INTEGUMENTARY Hx Dermatological Problems: No - MUSCULOSKELETAL/RHEUMATOLOGICAL Hx Arthritis: Yes - GASTROINTESTINAL Hx Gastrointestinal Disorders: No - GENITOURINARY/GYNECOLOGICAL Hx Genitourinary Disorders: No - PSYCHIATRIC Hx Psychophysiologic Disorder: No Hx Depression: No Hx Emotional Abuse: No Hx Physical Abuse: No Hx Substance Use: No - SURGICAL HISTORY Hx Hysterectomy: Yes - ANESTHESIA Hx Anesthesia: No Hx Anesthesia Reactions: No Meds Allergies/Adverse Reactions: Allergies Allergy/AdvReac Type Severity Reaction Status Date / Time statins Allergy stinging Uncoded 12/19/17 17:34 sensation in legs Physical Exam - Constitutional Appears: Well, No Acute Distress - Head Exam Head Exam: ATRAUMATIC, NORMOCEPHALIC - Eye Exam Eye Exam: EOMI Pupil Exam: NORMAL ACCOMODATION - ENT Exam ENT Exam: Mucous Membranes Moist - Respiratory Exam Respiratory Exam: Wheezes, NORMAL BREATHING PATTERN. absent: Rales, Rhonchi Additional comments: wheezes in b/l lung casanova - Cardiovascular Exam Cardiovascular Exam: REGULAR RHYTHM, +S1, +S2 - GI/Abdominal Exam GI & Abdominal Exam: Normal Bowel Sounds, Soft. absent: Tenderness - Extremities Exam Extremities exam: Negative for: pedal edema - Neurological Exam Neurological exam: Alert, Oriented x3 - Psychiatric Exam Psychiatric exam: Normal Affect, Normal Mood - Skin Skin Exam: Normal Color Results - Vital Signs Recent Vital Signs: Last Vital Signs Temp 98.2 F 12/19/17 17:25 Pulse 92 H 12/19/17 19:08 Resp 18 12/19/17 19:08 BP 139/70 12/19/17 19:08 Pulse Ox 92 L 12/19/17 19:08 - Labs Result Diagrams: 12/19/17 17:35 12/19/17 17:35 Labs: Laboratory Results - last 24 hr 12/19/17 12/19/17 12/19/17 17:35 17:35 17:35 WBC 10.0 D RBC 4.35 Hgb 12.4 Hct 36.8 MCV 84.6 MCH 28.5 MCHC 33.7 RDW 14.8 H Plt Count 316 MPV 9.3 Gran % 62.0 Lymph % (Auto) 27.6 [place] % (Auto) 3.6 Eos % (Auto) 6.5 H Baso % (Auto) 0.3 Gran # 6.21 Lymph # (Auto) 2.8 [place] # (Auto) 0.4 Eos # (Auto) 0.7 Baso # (Auto) 0.03 PT 12.1 INR 1.06 pO2 VBG pH VBG pCO2 VBG HCO3 VBG Total CO2 VBG O2 Sat (Calc) VBG Base Excess VBG Potassium Glucose Lactate FiO2 Sodium 146 Potassium 3.3 L Chloride 102 Carbon Dioxide 31 Anion Gap 15 BUN 13 Creatinine 1.0 Est GFR ( Amer) > 60 Est GFR (Non-Af Amer) 55 Random Glucose 105 Calcium 9.7 Phosphorus 3.7 Magnesium 1.9 Total Bilirubin 0.4 AST 36 ALT 24 Alkaline Phosphatase 104 Lactate Dehydrogenase 546 Total Creatine Kinase 351 H CK-MB (CK-2) 1.8 CK-MB (CK-2) % Cancelled Troponin I < 0.01 NT-Pro-B Natriuret Pep 22.5 Total Protein 7.7 Albumin 4.5 Globulin 3.2 Albumin/Globulin Ratio 1.4 Venous Blood Potassium 12/19/17 17:50 WBC RBC Hgb Hct MCV MCH MCHC RDW Plt Count MPV Gran % Lymph % (Auto) [place] % (Auto) Eos % (Auto) Baso % (Auto) Gran # Lymph # (Auto) [place] # (Auto) Eos # (Auto) Baso # (Auto) PT INR pO2 47 VBG pH 7.42 VBG pCO2 51.0 VBG HCO3 33.1 H VBG Total CO2 34.7 H VBG O2 Sat (Calc) 85.8 H VBG Base Excess 7.2 H VBG Potassium 3.4 L Glucose 103 Lactate 1.6 FiO2 21.0 Sodium 144.0 Potassium Chloride 107.0 Carbon Dioxide Anion Gap BUN Creatinine Est GFR ( Amer) Est GFR (Non-Af Amer) Random Glucose Calcium Phosphorus Magnesium Total Bilirubin AST ALT Alkaline Phosphatase Lactate Dehydrogenase Total Creatine Kinase CK-MB (CK-2) CK-MB (CK-2) % Troponin I NT-Pro-B Natriuret Pep Total Protein Albumin Globulin Albumin/Globulin Ratio Venous Blood Potassium 3.4 L Assessment & Plan - Assessment and Plan (Free Text) Assessment: 72F PMH COPD, HTN, arthritis presents with shortness of breath, admitted for pneumonia Plan: CAP: - pt with shortness of breath x4 days - CXR: RLL infiltrate - VBG: HCO3 33.1, CO2 34.7 - EKG: NSR @92 - WBC 10 - brovana - pulmicort - xopenex - solumedrol - f/u BCx - f/u UCx - f/u ABG - f/u Mg - f/u Phosph - f/u legionella, mycoplasma, flu - start doxy - benzonatate for cough - monitor breathing Hypokalemia: - K+ 3.3 - replete - monitor HLD - zetia - f/u liver function Diastolic CHF: - furosemide - cardizem h/o Gout: - allopurinol PPX: GI: protonix DVT: SCDs Case discussed with Dr. Cowan.
[2017-12-19] MEDS: Levalbuterol 0.63 MG/3 ML Inhal Soln UD IH SCH (20:00)
[2017-12-19] MEDS: MethylPREDNISolone 40 mg Vial IVP SCH (20:00)
[2017-12-19] MEDS ORDERED: Albuterol-Ipratrop 3 mg / 0.5 (3 ml) UD IH PRN (20:11)
[2017-12-19] MEDS: Potassium Chloride 20 mEq ER Tab PO SCH ×2 (20:28→22:05)
[2017-12-19] MEDS: Acetylcysteine 20% Inhal Soln (4ml) IH SCH (20:28)
[2017-12-19 21:04] LABS: URINE BILIRUBIN NEGATIVE (NEGATIVE); URINE BLOOD NEGATIVE (NEGATIVE); URINE GLUCOSE (UA) NEGATIVE (NEGATIVE); URINE LEUKOCYTE ESTERASE NEGATIVE Leu/uL (NEGATIVE); URINE PROTEIN NEGATIVE mg/dL (<30 mg/dL); URINE UROBILINOGEN 0.2 E.U./dL (<1 E.U./dL)
[2017-12-19 21:10] LABS: URINE APPEARANCE CLEAR (CLEAR); URINE COLOR LIGHT YELLOW (YELLOW)
[2017-12-20 00:03] LABS: ARTERIAL BLOOD GAS HCO3 26.4 mmol/L (21-28); ARTERIAL BLOOD GAS O2 CAPACITY 16.5 mL/dl (16-24); ARTERIAL BLOOD GAS O2 CONTENT 16.4 ML/dl (15-23); ARTERIAL BLOOD GAS O2 SAT 99.4 % (95-98); ARTERIAL BLOOD GAS PCO2 38 mm/Hg (35-45); ARTERIAL BLOOD GAS PH 7.45 (7.35-7.45); ARTERIAL BLOOD GAS TCO2 27.6 mmol.L (22-28)
--- NOTE | 2017-12-20 00:42 | HP ---
Copied To: James Cowan MD Attending MD: James Cowan MD HISTORY OF PRESENT ILLNESS: The patient is a 72-year-old female presented to the [facility] Emergency Room as an ambulatory walk-in complaining of increasing shortness of breath since the last 4 days with cough and productive of phlegm. The patient complains of shortness of breath at rest. The patient denies any pain. The patient also reports progressively increasing shortness of breath which is worsening in the last 4 days and also productive cough. The patient has not been keeping her appointments since her last discharge in 09/2017. She has not kept her office appointment for unknown reason. REVIEW OF SYSTEMS: Thirteen-system review was done, pertinent positive and negative dictated above. CODE STATUS: Full code. ALLERGIES: STATIN HEIGHT: 5 feet 2 inches. WEIGHT: 216. BMI: Almost 40. HOME MEDICATIONS: The patient's last discharge home medications as per 09/26 discharge, the patient was supposed to be on nebulizer treatment [id number], allopurinol 300 mg daily, Brovana 15 mcg nebulizer twice a day, Tessalon Perles 200 three times a day, Pulmicort nebulizer 0.5 mg every 12 hours, Symbicort inhaler 80/4.5 2 puffs twice a day, Cardizem CD 180 daily, Colace 100 mg three times a day, Zetia 10 mg daily, Lasix 40 mg daily. The patient was discharged on Medrol tapering dose, Protonix 40 daily, MiraLax 17 g daily, Spiriva 18 mcg daily. The patient also has been noticed on the office visit that the patient is not taking medications as prescribed. MENSTRUAL HISTORY: Postmenopausal. FAMILY HISTORY: Not available. OCCUPATIONAL HISTORY: The patient is a elementary school registrar. SOCIAL HISTORY: Positive for former smoker. Denies alcohol. Denies drug use. Patient is also seen by the medical payment poster and the ER attending. PAST MEDICAL AND SURGICAL HISTORY: History of morbid obesity, history of poor compliance, history of hypertension, history of degenerative joint disease, history of multiple recurrent acute exacerbation of chronic obstructive pulmonary disease, history of nicotine dependence, history of hysterectomy, history of tonsillectomy, history of former nicotine dependence, history of systemic inflammatory response syndrome, history of hypokalemia, hypophosphatemia, history of hyperuricemia, history of venous stasis of the lower extremity, history of pulmonary hypertension with elevated right ventricular systolic pressure, history of elevated right ventricular systolic pressure of 56 mmHg, history of prediabetes, history of sigmoid colon diverticulosis, history of hypertensive cardiovascular disease with left ventricular hypertrophy, history of grade 1 abnormal relaxation pattern, history of moderate tricuspid regurgitation, history of chronic kidney disease stage II/III, history of mild aortic and mild mitral valve regurgitation, history of sedentary lifestyle with elevated body mass index, history of constipation, history of right-sided diastolic congestive heart failure secondary to pulmonary hypertension, history of dietary noncompliance, history of prerenal kidney injury. PHYSICAL EXAMINATION: VITAL SIGNS: T-max 98.2; pulse rate 94, 92 sinus rhythm; blood pressure 140/80, 139/70; respirations 80-20; O2 sat 92%-95%. HEENT: Head examination, normocephalic and atraumatic. HEENT examination shows pink conjunctivae. Anicteric sclerae. No oropharyngeal lesion. No neck rigidity. CHEST: Kyphosis. LUNGS: Examination shows positive wheezing bilaterally, positive crackles, right more than the left. Decreased air entry. CARDIOVASCULAR: S1, S2, regular rhythm. ABDOMEN: Soft, obese, protuberant. No hepatosplenomegaly could be appreciated. GENITALIA: Female. EXTREMITIES: Show positive swelling of the lower extremity. MUSCULOSKELETAL: Examination shows an elevated body mass index of 40. NEUROLOGIC: The patient is alert, awake, oriented x3. Cranial nerves II-XII intact. Speech is normal. SKIN: Warm and dry. DIAGNOSTICS: CBC: WBC 10, hemoglobin/hematocrit 12.4/36.8, platelet 316. PT 12.1. VBG shows a lactate of 1.6, pH of 7.42, pO2 47, pCO2 51. Sodium 146, potassium 3.3, chloride 102, CO2 31, anion gap 15, BUN 13, creatinine 1, GFR greater than 60, glucose 105, calcium 9.7, phosphorus 3.7, magnesium 1.9. LFTs are normal. CPK 351. Troponin is less than 0.01. BNP 22.5. Urine pH 6, specific gravity 1.010. Rest of the urinalysis was negative. The patient had a chest x-ray done which was a portable film which shows cardiomegaly, increased haziness of the right middle lobe and right lower lobe and left lower lobe. TREATMENT IN THE EMERGENCY ROOM: The patient was seen in the emergency room by the ER physician. The patient was given a couple of doses of DuoNeb nebulizer, Rocephin 1 g was given, Solu-Medrol 125 was given, Zithromax 500 IV was given and the patient was advised to be admitted to [facility]. IMPRESSION: 1. Acute exacerbation of advanced chronic obstructive pulmonary disease. 2. Possible community-acquired multilobar right middle lobe, right lower lobe, and left lower lobe pneumonia, infiltrate, atelectasis. 3. Tachycardia. 4. Hypoxemia. 5. Hypokalemia. PLAN: At this time, the patient will be admitted to [facility]. Serial labs have been ordered. The patient's labs have been ordered including CMP, LFTs, magnesium, phosphorus, CBC in a.m. Mycoplasma titers, Legionella titers, influenza A and B have been ordered. Room air ABG stat has been ordered. Blood and urine cultures have been ordered. Sputum cultures will be ordered. Rapid flu has been ordered. The patient is started on Xopenex nebulizer with Mucomyst nebulizer every 6 hours, Brovana 15 mcg every 12, Cardizem CD 180 daily, Colace 100 mg three times a day has been ordered, doxycycline 100 mg IV every 12 ordered. The patient has been ordered, given potassium supplementation. The patient is started on Lasix 40 IV daily, Lovenox 40 subcu daily for deep venous thrombosis prophylaxis, MiraLax 17 twice a day, Protonix 40 twice a day, Pulmicort nebulizer, Rocephin 2 g IV daily Solu-Medrol 40 IV every 8, Tessalon Perles 200 three times a day has been ordered, Tylenol p.r.n., Zetia 10 mg daily, Zofran 4 IV every 4 p.r.n., allopurinol [address] chest without contrast ordered. Chest PT, incentive spirometry, oxygen 2 liters continuous ordered. The patient's EKG preliminary report was reviewed which was done in the emergency room, shows sinus rhythm with some PACs. The patient has been ordered consistent carbohydrate diet. Fingerstick blood sugar, out of bed, MURPHY stockings, SCDs, physical therapy, occupational therapy ordered. At present, the patient is to be admitted to [facility]. The patient's further management will be dependent upon the patient's clinical condition, hemodynamic status and as per the patient's response to therapeutic intervention as per the patient's diagnostic test results and as per the patient's response to therapeutic intervention and as per the patient's diagnostic data. The patient has been updated about her condition, diagnosis, treatment plan, need for hospitalization, need for compliance with diet, activity and medications was reemphasized to the patient again which has been done before on multiple hospitalization and also during the office visit. Dictated and electronically signed, not read. James Cowan MD
[2017-12-20] MEDS ORDERED: Albuterol-Ipratrop 3 mg / 0.5 (3 ml) UD IH SCH (02:00)
[2017-12-20] MEDS: MethylPREDNISolone 40 mg Vial IVP SCH ×3 (02:44→22:51)
[2017-12-20] MEDS: Pantoprazole 40 mg EC Tab PO SCH ×2 (05:07→15:55)
--- NOTE | 2017-12-20 06:16 | CT ---
Date of service: 12/19/2017 PROCEDURE: CT Chest without contrast HISTORY: PNEUMONIA COMPARISON: None available. TECHNIQUE: Contiguous axial images were obtained through the chest without intravenous contrast enhancement. Sagittal and coronal reconstructions were performed. Radiation dose (DLP): mGy-cm. This CT exam was performed using one or more of the following dose reduction techniques: Automated exposure control, adjustment of the mA and/or kV according to patient size, and/or use of iterative reconstruction technique. FINDINGS: LUNGS: Discoid atelectasis in the lingula. MEDIASTINUM: Unremarkable thoracic aorta. No aneurysm. Normal sized heart. Main pulmonary artery unremarkable. No vascular congestion. No lymphadenopathy. PLEURA: No pleural fluid. No pneumothorax. BONES: No fracture. No destructive lesion. UPPER ABDOMEN: Grossly unremarkable. OTHER FINDINGS: 14 millimeter nonspecific nodule in the right lobe of the thyroid gland; correlate with thyroid ultrasound. IMPRESSION: Discoid atelectasis in the lingula.14 millimeter nonspecific nodule in the right lobe of the thyroid gland; correlate with thyroid ultrasound.
[2017-12-20] MEDS: Acetylcysteine 20% Inhal Soln (4ml) IH SCH ×3 (07:23→19:52)
[2017-12-20] MEDS: Budesonide 0.5 mg/2 ml Inhal Susp UD IH SCH ×2 (07:23→19:52)
[2017-12-20] MEDS: Arformoterol 15 mcg/2 ml Inh Sol IH SCH ×2 (07:23→19:52)
[2017-12-20] MEDS: Levalbuterol 0.63 MG/3 ML Inhal Soln UD IH SCH ×3 (07:23→19:53)
[2017-12-20 07:32] LABS: BASO # 0.01 K/mm3 (0.0-2.0); BASO % 0.1 % (0.0-3.0); EOS % 0.3 % (1.5-5.0); GRAN # 6.56 (1.4-6.5); GRAN % 84.1 % (50.0-68.0); LYMPH # 1.2 (1.2-3.4); LYMPH % 15.1 % (22.0-35.0); MEAN CELL VOLUME 84.3 fl (80.0-105.0); MEAN CORPUSCULAR HEMOGLOBIN 27.7 pg (25.0-35.0); MEAN CORPUSCULAR HGB CONC 32.9 g/dl (31.0-37.0); MEAN PLATELET VOLUME 9.4 fl (7.0-11.0); MONO % 0.4 % (1.0-6.0); RBC 4.33 10^6/uL (3.5-6.1); RED CELL DISTRIBUTION WIDTH 14.8 % (11.5-14.5); WHITE BLOOD COUNT 7.8 10^3/ul (4.5-11.0)
[2017-12-20 07:59] LABS: ALB/GLOB RATIO 1.4 (1.1-1.8); ALBUMIN 4.5 g/dL (3.0-4.8); BILIRUBIN,DIRECT 0.2 mg/dL (0.0-0.4); CALCIUM 10.1 mg/dL (8.4-10.5); URIC ACID 4.6 mg/dL (2.5-6.2)
--- NOTE | 2017-12-20 09:38 | RAD ---
Date of service: 12/19/2017 HISTORY: DYSPNEA COMPARISON: 09/22/2017 FINDINGS: LUNGS: No active pulmonary disease. PLEURA: No significant pleural effusion identified, no pneumothorax apparent. CARDIOVASCULAR: Normal. OSSEOUS STRUCTURES: No significant abnormalities. VISUALIZED UPPER ABDOMEN: Normal. OTHER FINDINGS: None. IMPRESSION: No active disease.
[2017-12-20] MEDS: diltiaZEM 180 mg/24 Hours CD Cap PO SCH (09:57)
[2017-12-20] MEDS: POLYETHYLENE GLYCOL 3350 17 GM/Dose PACKET PO SCH ×2 (09:57→17:08)
[2017-12-20] MEDS: Potassium & Sodium Phosphate PO SCH ×4 (09:57→22:49)
[2017-12-20] MEDS: Potassium Chloride 20 mEq ER Tab PO SCH (09:57)
[2017-12-20] MEDS: cefTRIAXone 2 GM IN NS 2 GM/100 ML BAG IVPB SCH (09:59)
[2017-12-20] MEDS ORDERED: POLYETHYLENE GLYCOL 3350 17 GM/Dose PACKET PO SCH (10:00)
[2017-12-20] MEDS: Enoxaparin 40 mg Syringe SC SCH (10:03)
--- NOTE | 2017-12-20 11:24 | CARD ---
APPROVED REPORT Date of service: 12/19/2017 EKG Measurement Heart [id number] <Conclusion> Sinus rhythm with premature atrial complexes with aberrant conduction Left axis deviation Inferior infarct, age undetermined Abnormal ECG
--- NOTE | 2017-12-20 11:35 | CP.PCM.PN ---
Subjective - Date & Time of Evaluation Date of Evaluation: 12/20/17 Time of Evaluation: 10:33 - Subjective Subjective: Ashkan Klein PGY2 IM Progress Note for Dr. Cowan Patient was seen and examined at bedside. She states that her cough has improved, but that she is still wheezing. She denies any fever/chills, shortness of breath, chest pain, abdominal pain. There were no acute overnight events. Her vitals, labs, medications, prior charts were reviewed. Patient requested that she be continued on certain medications from home, but her current medications were reviewed and it was decided that continuing the current regimen is in the best interest of the patient. She was encouraged regarding getting out of bed as tolerated, as well as weight loss. Objective - Vital Signs/Intake and Output Vital Signs (last 24 hours): Temp Pulse Resp BP Pulse Ox 97.5 F L 90 22 156/81 H 99 12/20/17 08:04 12/20/17 09:57 12/20/17 08:04 12/20/17 09:58 12/20/17 10:12 Intake and Output: 12/20/17 12/20/17 06:59 18:59 Intake Total 300 Output Total 300 Balance 0 - Medications Medications: Current Medications Acetaminophen (Tylenol 325mg Tab) 650 mg PO Q6 PRN PRN Reason: TEMP>=99.5F Acetaminophen (Tylenol 650 Mg Supp) 650 mg RC Q6H PRN PRN Reason: TEMP>=99.5F Acetylcysteine (Acetylcysteine 20%) 4 ml IH [id number] [facility] Last Admin: 12/20/17 07:23 Dose: 4 ml Allopurinol (Zyloprim) 300 mg PO DAILY [facility] Last Admin: 12/20/17 10:37 Dose: 300 mg Arformoterol Tartrate (Brovana) 15 mcg IH [id number] [facility] Last Admin: 12/20/17 07:23 Dose: 15 mcg Benzonatate (Tessalon Perles) 200 mg PO TID [facility] Last Admin: 12/20/17 09:56 Dose: 200 mg Budesonide (Pulmicort Respules) 0.5 mg IH [id number] [facility] Last Admin: 12/20/17 07:23 Dose: 0.5 mg Diltiazem HCl (Cardizem Cd) 180 mg PO DAILY [facility] Last Admin: 12/20/17 09:57 Dose: 180 mg Docusate Sodium (Colace) 100 mg PO TID [facility] Last Admin: 12/20/17 09:56 Dose: 100 mg Ezetimibe (Zetia) 10 mg PO DAILY [facility] Last Admin: 12/20/17 09:56 Dose: 10 mg Enoxaparin Sodium (Lovenox) 40 mg SC DAILY [facility] PRN Reason: Protocol Last Admin: 12/20/17 10:03 Dose: 40 mg Furosemide (Lasix) 40 mg IVP DAILY [facility] Last Admin: 12/20/17 09:58 Dose: 40 mg Doxycycline Hyclate 100 mg/ (Sodium Chloride) 100 mls @ 100 mls/hr IVPB Q12 [facility] PRN Reason: Protocol Last Admin: 12/20/17 11:12 Dose: 100 mls/hr Ceftriaxone Sodium (Rocephin 2 Gm Ivpb) 2 gm in 100 mls @ 100 mls/hr IVPB DAILY [facility] PRN Reason: Protocol Last Admin: 12/20/17 09:59 Dose: 100 mls/hr Levalbuterol HCl (Xopenex) 0.63 mg IH [id number] [facility] Last Admin: 12/20/17 07:23 Dose: 0.63 mg Methylprednisolone (Solu-Medrol) 40 mg IVP Q8H [facility] Last Admin: 12/20/17 11:23 Dose: 40 mg Ondansetron HCl (Zofran Inj) 4 mg IVP Q4H PRN PRN Reason: Nausea/Vomiting Pantoprazole Sodium (Protonix Ec Tab) 40 mg PO 0600,1600 [facility] Last Admin: 12/20/17 05:07 Dose: 40 mg Polyethylene Glycol (Miralax) 17 gm PO BID [facility] Last Admin: 12/20/17 09:57 Dose: 17 gm Potassium Chloride (K-Dur 20 Meq Er Tab) 20 meq PO DAILY [facility] Last Admin: 12/20/17 09:57 Dose: 20 meq Potassium Phos/Sodium Phos (Neutra-Phos) 1 pkt PO QID [facility] Stop: 12/21/17 14:01 Last Admin: 12/20/17 09:57 Dose: 1 pkt - Labs Labs: 12/20/17 07:00 12/20/17 07:00 PT 12.1 SECONDS (9.4-12.5) 12/19/17 17:35 INR 1.06 12/19/17 17:35 - Constitutional Appears: Well, Non-toxic, No Acute Distress - Head Exam Head Exam: NORMAL INSPECTION - Eye Exam Eye Exam: EOMI, Normal appearance, PERRL - ENT Exam ENT Exam: Normal Exam - Neck Exam Neck Exam: Normal Inspection - Respiratory Exam Respiratory Exam: Wheezes (mild, L>R), NORMAL BREATHING PATTERN. absent: Rales , Rhonchi, Respiratory Distress - Cardiovascular Exam Cardiovascular Exam: RRR, +S1, +S2. absent: Murmur - GI/Abdominal Exam GI & Abdominal Exam: Soft. absent: Distended, Tenderness - Extremities Exam Extremities Exam: Full ROM. absent: Pedal Edema - Back Exam Back Exam: NORMAL INSPECTION - Neurological Exam Neurological Exam: Alert, Awake, Oriented x3 - Psychiatric Exam Psychiatric exam: Normal Mood - Skin Skin Exam: Normal Color Assessment and Plan - Assessment and Plan (Free Text) Assessment: 72 year-old AAF with a PMH COPD, HTN, arthritis presents with shortness of breath, admitted for COPD exacerbation. Echo from 08/2017 shows normal LVEF, but was positive for moderate pulmonary hypertension and moderate tricuspid regurgitation. EKG from this visit showed sinus arrhythmia with PACs, left axis deviation. CT chest showed discoid atelectasis in the lingula, and nonspecific right lobe thyroid nodule. Plan: 1. COPD exacerbation - cont Rocephin and Doxycycline - cont Brovana, Pulmicort - cont Tessalon Perles - Taper down Solu-medrol 40mg q8 - Mucomyst and Xopenex - Zofran PRN - m.pneumonia, legionella and influenza labwork pending - blood, sputum and urine cultures pending - PT/TCU eval pending 2. Diastolic CHF, Echo reviewed - cont Lasix 40mg IVP daily - cont cardizem 180mg PO daily 3. Electrolyte abnormalities: - will supplement K-Dur and Neutra-Phos daily 4. Hx HLD - cont zetia 5. Hx Gout: - cont allopurinol PPX: GI: protonix DVT: SCDs Case was reviewed and discussed with Dr. Chapo Klein PGY2
--- NOTE | 2017-12-20 13:22 | PN ---
Copied To: James Cowan MD Attending MD: James Cowan MD DATE: 12/20/2017 SUBJECTIVE: The patient is seen in room 369 bed 1. The patient is lying in the bed. OBJECTIVE: GENERAL: The patient is alert, awake, responsive. The patient states that her breathing is better than yesterday. VITAL SIGNS: T-max 98.3. Telemetry shows sinus rhythm. Heart rate in low 90s and 82. Blood pressure is 156/89, 150/85, ; respirations 22, O2 sat 99% on oxygen. HEENT: Head examination is normocephalic, atraumatic. HEENT examination shows pink conjunctivae. Anicteric sclerae. No oropharyngeal lesion. NECK: No neck rigidity. Questionable jugular venous distention. Questionable soft carotid bruit noted. CHEST: Kyphosis. LUNGS: Examination shows improved air entry. Decreased wheezing. Positive rhonchi in upper lung casanova, anterior-posterior bilaterally. CARDIOVASCULAR: S1, S2. Regular rhythm. Positive systolic murmur, left sternal border, right second intercostal space, left second intercostal space. ABDOMEN: Soft, obese, protuberant, unable to appreciate any hepatosplenomegaly. GENITALIA: Female. RECTAL: Deferred. EXTREMITIES: Show positive MURPHY stockings. Positive trace to 1+ pitting edema of the lower extremity. MUSCULOSKELETAL: Examination shows a body mass index of 39.5. NEUROLOGIC: The patient is alert, awake, responsive. PSYCHIATRIC: Examination is negative. DIAGNOSTICS: 12/20/2017, WBC 7.8, hemoglobin and hematocrit 12 and 36.5, platelets 328. Granulocytes 84% segs. ABG was done yesterday on 3 liters, pH of 7.45, pCO2 38, pO2 98, bicarb 26, saturation of 99.4. Sodium 145, potassium is now 4.1, chloride 103, CO2 30, anion gap 16, BUN 21, creatinine 1.1, GFR 59, glucose 143, uric acid 4.6, calcium 10.1, phosphorus 2.2. AST is 39. Rest of the LFTs are normal. Influenza A and B is negative. Urinalysis is negative. The patient's CT head was also reviewed. The patient had an EKG done, which was reviewed. IMPRESSION AND PLAN: 1. Acute exacerbation of chronic obstructive pulmonary disease with shortness of breath and coughing. 2. Questionable pneumonia. 3. Hypertension. 4. Tachycardia. 5. Granulocytosis. 6. Hypokalemia. 7. Hypophosphatemia. 8. Left lingular discoid atelectasis. 9. Right thyroid 14-mm nonspecific nodule. 10. Questionable right middle lobe, right lower lobe and left lower lobe pneumonia as per the Emergency Room. 11. Left axis deviation with age indeterminate inferior infarct. 12. History of pulmonary hypertension and tricuspid regurgitation. 13. History of noncompliance with diet and medications. 14. Acute exacerbation of diastolic congestive heart failure. 15. Hyperglycemia. 16. Tachycardia. 17. Hypoxemia. PLAN: At this time, the patient is to be continued on serial labs. CMP, LFT, magnesium, phosphorus, hemoglobin A1c ordered. The patient has been ordered influenza, Mycoplasma titer. Repeat CBC ordered. Sputum, blood, urine cultures ordered. The patient is continued on Xopenex and Mucomyst nebulizer. The patient is on Brovana 15 mcg nebulizer twice, Cardizem CD 180 mg daily, Colace 100 mg three times a day, doxycycline 100 mg every 12 hours, K-Dur 20 mEq daily, Lasix 40 mg IV daily, Lovenox 40 mg subcu daily, MiraLax 17 g twice a day. The patient is given Neutra-Phos four doses, Protonix 40 mg daily, Pulmicort nebulizer 0.5 mg every 12 hours, Rocephin 2 g IV daily, Solu-Medrol 40 mg IV every 8 hours, Tessalon 200 three times a day. The patient is on Pulmicort nebulizer 0.5 mg every 12 hours, Rocephin 2 g IV daily, Solu-Medrol 40 mg IV every 8 hours, Tessalon Perles 200 three times a day, Tylenol p.r.n., Zetia 10 mg daily, Zofran 4 mg IV every 4 hours, allopurinol 300 mg daily which can be considered for discharge. The patient's uric acid is 4.6. The patient has been ordered chest PT, incentive spirometer, oxygen 2 liters, consistent carbohydrate diet, out of bed, MURPHY stockings, SCDs. The patient has been encouraged to ambulate. The patient was again reinforced and and re-advised weight loss, increased activity, strict compliance with diet and medications as per last discharge prescription of September 2017. At present, the patient will be continued on the above therapeutic intervention with close monitoring of the patient's condition, diagnosis, treatment plan, management plan at length and all questions concerned answered. The patient was again reinforced to comply with all the recommendations. The patient was advised to increase activity, out of bed to chair. Dictated and electronically signed, not read. James Cowan MD
[2017-12-21] MEDS: Acetylcysteine 20% Inhal Soln (4ml) IH SCH ×3 (01:11→13:38)
[2017-12-21] MEDS: Levalbuterol 0.63 MG/3 ML Inhal Soln UD IH SCH ×4 (01:11→19:56)
[2017-12-21] MEDS ORDERED: MethylPREDNISolone 40 mg Vial IVP SCH (05:21)
[2017-12-21] MEDS: Pantoprazole 40 mg EC Tab PO SCH ×2 (05:22→17:31)
[2017-12-21 07:32] LABS: ALB/GLOB RATIO 1.4 (1.1-1.8); ALBUMIN 4.3 g/dL (3.0-4.8); BILIRUBIN,DIRECT 0.1 mg/dL (0.0-0.4); CALCIUM 9.6 mg/dL (8.4-10.5)
[2017-12-21] MEDS: Arformoterol 15 mcg/2 ml Inh Sol IH SCH ×2 (07:56→19:56)
[2017-12-21] MEDS: Budesonide 0.5 mg/2 ml Inhal Susp UD IH SCH ×2 (07:56→19:56)
--- NOTE | 2017-12-21 09:44 | CP.PCM.PN ---
Subjective - Date & Time of Evaluation Date of Evaluation: 12/21/17 Time of Evaluation: 09:43 - Subjective Subjective: Ashkan Klein PGY2 IM Progress Note for Dr. Cowan Patient was seen and examined at bedside. She states that she still has a cough although improved, and is still wheezing. The patient denies any other fevers/chills, chest pain, shortness of breath, abdominal pain, constipation, nausea/vomiting, or weakness. She states that she had a bowel movement, which was soft. She is tolerating her diet. Upon re-examination, patient states that she had another BM which was loose. Objective - Vital Signs/Intake and Output Vital Signs (last 24 hours): Temp Pulse Resp BP Pulse Ox 97.4 F L 66 20 151/88 H 100 12/21/17 08:20 12/21/17 08:20 12/21/17 08:20 12/21/17 08:20 12/21/17 08:20 - Medications Medications: Current Medications Acetaminophen (Tylenol 325mg Tab) 650 mg PO Q6 PRN PRN Reason: TEMP>=99.5F Acetaminophen (Tylenol 650 Mg Supp) 650 mg RC Q6H PRN PRN Reason: TEMP>=99.5F Acetylcysteine (Acetylcysteine 20%) 4 ml IH [id number] [facility] Last Admin: 12/21/17 07:57 Dose: Not Given Allopurinol (Zyloprim) 300 mg PO DAILY [facility] Last Admin: 12/20/17 10:37 Dose: 300 mg Arformoterol Tartrate (Brovana) 15 mcg IH [id number] [facility] Last Admin: 12/21/17 07:56 Dose: 15 mcg Benzonatate (Tessalon Perles) 200 mg PO TID [facility] Last Admin: 12/20/17 17:11 Dose: 200 mg Budesonide (Pulmicort Respules) 0.5 mg IH [id number] [facility] Last Admin: 12/21/17 07:56 Dose: 0.5 mg Diltiazem HCl (Cardizem Cd) 180 mg PO DAILY [facility] Last Admin: 12/20/17 09:57 Dose: 180 mg Docusate Sodium (Colace) 100 mg PO TID [facility] Last Admin: 12/20/17 17:08 Dose: 100 mg Doxycycline Hyclate (Doryx) 100 mg PO Q12 [facility] Stop: 12/24/17 22:01 Ezetimibe (Zetia) 10 mg PO DAILY [facility] Last Admin: 12/20/17 09:56 Dose: 10 mg Enoxaparin Sodium (Lovenox) 40 mg SC DAILY [facility] PRN Reason: Protocol Last Admin: 12/20/17 10:03 Dose: 40 mg Furosemide (Lasix) 40 mg IVP DAILY [facility] Last Admin: 12/20/17 09:58 Dose: 40 mg Doxycycline Hyclate 100 mg/ (Sodium Chloride) 100 mls @ 100 mls/hr IVPB Q12 [facility] PRN Reason: Protocol Stop: 12/21/17 10:01 Last Admin: 12/20/17 22:49 Dose: 100 mls/hr Ceftriaxone Sodium (Rocephin 2 Gm Ivpb) 2 gm in 100 mls @ 100 mls/hr IVPB DAILY [facility] PRN Reason: Protocol Last Admin: 12/20/17 09:59 Dose: 100 mls/hr Levalbuterol HCl (Xopenex) 0.63 mg IH [id number] [facility] Last Admin: 12/21/17 07:56 Dose: 0.63 mg Methylprednisolone (Solu-Medrol) 30 mg IVP Q8 [facility] Ondansetron HCl (Zofran Inj) 4 mg IVP Q4H PRN PRN Reason: Nausea/Vomiting Pantoprazole Sodium (Protonix Ec Tab) 40 mg PO 0600,1600 [facility] Last Admin: 12/21/17 05:22 Dose: 40 mg Polyethylene Glycol (Miralax) 17 gm PO BID [facility] Last Admin: 12/20/17 17:08 Dose: 17 gm Potassium Chloride (K-Dur 20 Meq Er Tab) 20 meq PO DAILY [facility] Last Admin: 12/20/17 09:57 Dose: 20 meq Potassium Phos/Sodium Phos (Neutra-Phos) 1 pkt PO QID [facility] Stop: 12/21/17 14:01 Last Admin: 12/20/17 22:49 Dose: 1 pkt - Labs Labs: 12/20/17 07:00 12/21/17 07:00 PT 12.1 SECONDS (9.4-12.5) 12/19/17 17:35 INR 1.06 12/19/17 17:35 - Additional Findings Additional findings: - Constitutional Appears: Well, Non-toxic, No Acute Distress - Head Exam Head Exam: NORMAL INSPECTION - Eye Exam Eye Exam: EOMI, Normal appearance, PERRL - ENT Exam ENT Exam: Normal Exam - Neck Exam Neck Exam: Normal Inspection - Respiratory Exam Respiratory Exam: Wheezes (mild), NORMAL BREATHING PATTERN. absent: Rales, Rhonchi, Respiratory Distress - Cardiovascular Exam Cardiovascular Exam: RRR, +S1, +S2. absent: Murmur - GI/Abdominal Exam GI & Abdominal Exam: Soft. absent: Distended, Tenderness - Extremities Exam Extremities Exam: Full ROM. absent: Pedal Edema - Back Exam Back Exam: NORMAL INSPECTION - Neurological Exam Neurological Exam: Alert, Awake, Oriented x3 - Psychiatric Exam Psychiatric exam: Normal Mood - Skin Skin Exam: Normal Color Assessment and Plan - Assessment and Plan (Free Text) Assessment: 72 year-old AAF with a PMH COPD, HTN, arthritis presents with shortness of breath, admitted for COPD exacerbation. Echo from 08/2017 shows normal LVEF, but was positive for moderate pulmonary hypertension and moderate tricuspid regurgitation. EKG from this visit showed sinus arrhythmia with PACs, left axis deviation. CT chest showed discoid atelectasis in the lingula, and nonspecific right lobe thyroid nodule. Plan: 1. COPD exacerbation - cont Rocephin and Doxycycline - cont Brovana, Pulmicort - cont Tessalon Perles - Taper down Solu-medrol 40mg q8 to 30q8 - Mucomyst and Xopenex - Zofran PRN - m.pneumonia, legionella and influenza labwork pending - blood cxs negative x24 hrs - sputum and urine cultures pending - PT eval recommending home 2. Diastolic CHF, Echo reviewed - cont Lasix 40mg IVP daily - cont cardizem 180mg PO daily 3. Diarrhea - order c.diff and stool culture 4. Electrolyte abnormalities: - will supplement K-Dur and Neutra-Phos daily 5. Hx HLD - cont zetia 6. Hx Gout: - cont allopurinol 7. PPX: GI: protonix DVT: SCDs/Lovenox Case was reviewed and discussed with Dr. Chapo Klein PGY2
[2017-12-21] MEDS: diltiaZEM 180 mg/24 Hours CD Cap PO SCH (10:14)
[2017-12-21] MEDS: Potassium Chloride 20 mEq ER Tab PO SCH (10:15)
[2017-12-21] MEDS: Potassium & Sodium Phosphate PO SCH ×2 (10:16→14:48)
[2017-12-21] MEDS: Enoxaparin 40 mg Syringe SC SCH (10:16)
[2017-12-21] MEDS: POLYETHYLENE GLYCOL 3350 17 GM/Dose PACKET PO SCH ×2 (10:16→11:55)
[2017-12-21] MEDS: cefTRIAXone 2 GM IN NS 2 GM/100 ML BAG IVPB SCH (10:17)
[2017-12-21] MEDS: MethylPREDNISolone 40 mg Vial IVP SCH ×2 (14:48→21:54)
--- NOTE | 2017-12-21 15:03 | PN ---
Copied To: James Cowan MD Attending MD: James Cowan MD DATE: 12/21/2017 SUBJECTIVE: The patient is seen in room 369 bed 1. The patient's overnight nurse's notes were reviewed. The patient is complaining of two episodes of diarrhea today, which the patient reported to me but did not report to the nurses. The patient reports improvement in breathing, decreased cough. OBJECTIVE: VITAL SIGNS: T-max 99 to 97.4; heart rate 66; blood pressure 151/88; respiration 20; O2 sat 100%. HEENT: Head examination, normocephalic and atraumatic. HEENT examination shows pink conjunctivae. Anicteric sclerae. No oropharyngeal lesion. NECK: No neck rigidity. CHEST: Kyphosis. LUNGS: Examination shows decreased wheezing. Questionable decreased breath sound at the bases, left more than the right. CARDIOVASCULAR: S1, S2, regular rhythm. Questionable soft systolic murmur, left sternal border, right second intercostal space, left second intercostal space. ABDOMEN: Protuberant. Positive bowel sounds. Obese. No hepatosplenomegaly could be appreciated. GENITALIA: Female. RECTAL: Deferred. Positive MURPHY stockings noted. VASCULAR: Examination appears to be intact. MUSCULOSKELETAL: Shows a body mass index of almost 40. Gait examination could not be tested. PSYCHIATRIC: Negative for anxiety, depression. Negative for suicidal, homicidal ideation. Negative for auditory, visual hallucination. DIAGNOSTICS: CBC from last two days from 12/19/2017 and 12/20/2017 were reviewed. They were within normal limit. Sodium 143, potassium 4.2, chloride 104, CO2 26, anion gap 18, BUN 27, creatinine 1.2. Glucose 131, 120, 156, 155, 187. Calcium 9.6. Hemoglobin A1c is 6.3, prediabetic. AST is 43. Urinalysis is negative. Influenza A and B negative. Legionella pneumophila and Mycoplasma pneumoniae all negative. Blood cultures negative. IMPRESSION AND PLAN: 1. Diarrhea, etiology undetermined, questionable drug induced. 2. Acute exacerbation of chronic obstructive pulmonary disease. 3. Questionable pneumonia on chest x-ray as per ER physician. 4. Hypertension. 5. Tachycardia. 6. Left lingular discoid atelectasis. 7. Right thyroid 14-mm nonspecific nodule. 8. Questionable right middle lobe, right lower lobe, left lower lobe pneumonia as per the ER physician, chest x-ray evaluation. 9. Left axis deviation with age indeterminate inferior infarct. 10. History of pulmonary hypertension. 11. Tricuspid regurgitation. 12. Poor compliance with diet and medication. 13. Acute exacerbation of diastolic congestive heart failure. 14. Hypoxemia. 15. Morbid obesity with elevated body mass index of 40. 16. Reactive granulocytosis. 17. Hypokalemia. 18. Prerenal kidney injury. 19. Prediabetes with hyperglycemia and hemoglobin A1c of 6.3. 20. Constipation. PLAN: At this time, the patient's Colace and MiraLax has been stopped. The patient is ordered stool C. Diff. Repeat CMP, LFTs, magnesium, phosphorus has been ordered. CBC has been monitored. C. diff antigen, urine and stool cultures ordered. Diabetic education, TCU evaluation ordered. The patient is on Mucomyst nebulizer 30% 4 mL every 6 hours, Brovana nebulizer 15 mcg every 12 hours, Cardizem CD 180 mg daily, doxycycline 100 mg p.o. every 12 hours, K-Dur 20 mEq daily, Lasix 40 mg IV daily, Lovenox 40 mg subcu daily, MiraLax and Colace stopped. The patient is on Neutra-Phos which will be completed today, Protonix 40 mg twice a day, Pulmicort nebulizer 0.5 mg every 12 hours, Rocephin 2 g IV daily, Solu-Medrol decreased to 30 mg IV every 8 hours, Tessalon Perles 200 three times a day, Tylenol suppository p.o. every 6 hours p.r.n., Xopenex nebulizer every 6 hours 0.63 mg every 6 hours. The patient is on Zofran 4 mg IV every 4 hours, Zetia 10 mg daily, allopurinol 300 mg daily. Chest PT, incentive spirometry, oxygen 2 liters continuous, consistent carbohydrate diet, out of bed, MURPHY stockings, SCDs, physical therapy, occupational therapy all ordered. At present, the patient's further management will be dependent upon the patient's clinical condition, hemodynamic status and as per the patient response to therapeutic intervention, as per the patient's diagnostic test results and as per recommendation by all the physician involved in the care of the patient. The patient updated about her condition, diagnosis, treatment plan, management plan at length. All questions concerned answered. Dictated and electronically signed, not read. James Cowan MD
[2017-12-22] MEDS: Levalbuterol 0.63 MG/3 ML Inhal Soln UD IH SCH ×3 (02:29→14:02)
[2017-12-22] MEDS: Acetylcysteine 20% Inhal Soln (4ml) IH SCH ×5 (02:29→19:51)
[2017-12-22] MEDS: Pantoprazole 40 mg EC Tab PO SCH ×2 (05:39→18:03)
[2017-12-22] MEDS: MethylPREDNISolone 40 mg Vial IVP SCH ×3 (05:39→21:48)
[2017-12-22 07:17] LABS: ALB/GLOB RATIO 1.4 (1.1-1.8); BILIRUBIN,DIRECT 0.1 mg/dL (0.0-0.4); CALCIUM 9.1 mg/dL (8.4-10.5)
[2017-12-22] MEDS: Arformoterol 15 mcg/2 ml Inh Sol IH SCH ×2 (07:48→19:51)
[2017-12-22] MEDS: Budesonide 0.5 mg/2 ml Inhal Susp UD IH SCH ×2 (07:48→19:51)
[2017-12-22] MEDS: diltiaZEM 180 mg/24 Hours CD Cap PO SCH (09:31)
[2017-12-22] MEDS: Potassium Chloride 20 mEq ER Tab PO SCH (09:32)
[2017-12-22] MEDS: cefTRIAXone 2 GM IN NS 2 GM/100 ML BAG IVPB SCH (09:34)
[2017-12-22] MEDS: Enoxaparin 40 mg Syringe SC SCH (09:40)
--- NOTE | 2017-12-22 10:15 | CP.PCM.PN ---
Subjective - Date & Time of Evaluation Date of Evaluation: 12/22/17 Time of Evaluation: 10:12 - Subjective Subjective: Ashkan Klein PGY2 IM Progress Note for Dr. Cowan Patient was seen and examined at bedside. She states that her cough has improved but that her wheezing is persistent. Patient also requesting information regarding weight loss, and was encouraged to speak with the water taxi driver for a meal plan. Otherwise, the patient denies chest pain, shortness of breath, fevers/chills, nausea/vomiting. Objective - Vital Signs/Intake and Output Vital Signs (last 24 hours): Temp Pulse Resp BP Pulse Ox 97.6 F 68 18 159/82 H 99 12/22/17 06:00 12/22/17 09:31 12/22/17 06:00 12/22/17 09:33 12/22/17 06:00 - Medications Medications: Current Medications Acetaminophen (Tylenol 325mg Tab) 650 mg PO Q6 PRN PRN Reason: TEMP>=99.5F Acetaminophen (Tylenol 650 Mg Supp) 650 mg RC Q6H PRN PRN Reason: TEMP>=99.5F Acetylcysteine (Acetylcysteine 20%) 4 ml IH [id number] [facility] Last Admin: 12/22/17 07:47 Dose: 4 ml Allopurinol (Zyloprim) 300 mg PO DAILY [facility] Last Admin: 12/22/17 09:38 Dose: 300 mg Arformoterol Tartrate (Brovana) 15 mcg IH [id number] [facility] Last Admin: 12/22/17 07:48 Dose: 15 mcg Benzonatate (Tessalon Perles) 200 mg PO TID [facility] Last Admin: 12/22/17 09:37 Dose: 200 mg Budesonide (Pulmicort Respules) 0.5 mg IH [id number] [facility] Last Admin: 12/22/17 07:48 Dose: 0.5 mg Diltiazem HCl (Cardizem Cd) 180 mg PO DAILY [facility] Last Admin: 12/22/17 09:31 Dose: 180 mg Doxycycline Hyclate (Doryx) 100 mg PO Q12 [facility] Stop: 12/24/17 22:01 Last Admin: 12/22/17 09:31 Dose: 100 mg Ezetimibe (Zetia) 10 mg PO DAILY [facility] Last Admin: 12/22/17 09:38 Dose: 10 mg Enoxaparin Sodium (Lovenox) 40 mg SC DAILY [facility] PRN Reason: Protocol Last Admin: 12/22/17 09:40 Dose: 40 mg Furosemide (Lasix) 20 mg IVP DAILY [facility] Last Admin: 12/22/17 09:33 Dose: 20 mg Ceftriaxone Sodium (Rocephin 2 Gm Ivpb) 2 gm in 100 mls @ 100 mls/hr IVPB DAILY [facility] PRN Reason: Protocol Last Admin: 12/22/17 09:34 Dose: 100 mls/hr Levalbuterol HCl (Xopenex) 0.63 mg IH [id number] [facility] Last Admin: 12/22/17 07:48 Dose: 0.63 mg Methylprednisolone (Solu-Medrol) 30 mg IVP Q8 [facility] Last Admin: 12/22/17 05:39 Dose: 30 mg Ondansetron HCl (Zofran Inj) 4 mg IVP Q4H PRN PRN Reason: Nausea/Vomiting Pantoprazole Sodium (Protonix Ec Tab) 40 mg PO 0600,1600 [facility] Last Admin: 12/22/17 05:39 Dose: 40 mg Potassium Chloride (K-Dur 20 Meq Er Tab) 20 meq PO DAILY [facility] Last Admin: 12/22/17 09:32 Dose: 20 meq - Labs Labs: 12/20/17 07:00 12/22/17 06:00 PT 12.1 SECONDS (9.4-12.5) 12/19/17 17:35 INR 1.06 12/19/17 17:35 - Additional Findings Additional findings: - Constitutional Appears: Well, Non-toxic, No Acute Distress - Head Exam Head Exam: NORMAL INSPECTION - Eye Exam Eye Exam: EOMI, Normal appearance, PERRL - ENT Exam ENT Exam: Normal Exam - Neck Exam Neck Exam: Normal Inspection - Respiratory Exam Respiratory Exam: Wheezes (mild, improved), NORMAL BREATHING PATTERN. absent: Rales, Rhonchi, Respiratory Distress - Cardiovascular Exam Cardiovascular Exam: RRR, +S1, +S2. absent: Murmur - GI/Abdominal Exam GI & Abdominal Exam: Soft. absent: Distended, Tenderness - Extremities Exam Extremities Exam: Full ROM. absent: Pedal Edema - Back Exam Back Exam: NORMAL INSPECTION - Neurological Exam Neurological Exam: Alert, Awake, Oriented x3 - Psychiatric Exam Psychiatric exam: Normal Mood - Skin Skin Exam: Normal Color Assessment and Plan - Assessment and Plan (Free Text) Assessment: 72 year-old AAF with a PMH COPD, HTN, arthritis presents with shortness of breath, admitted for COPD exacerbation. Echo from 08/2017 shows normal LVEF, but was positive for moderate pulmonary hypertension and moderate tricuspid regurgitation. EKG from this visit showed sinus arrhythmia with PACs, left axis deviation. CT chest showed discoid atelectasis in the lingula, and nonspecific right lobe thyroid nodule. Breathing has improved, and patient is responding to treatment. Plan: 1. COPD exacerbation - cont Rocephin and Doxycycline - cont Brovana, Pulmicort - cont Tessalon Perles - Taper down Solu-medrol 30mg q8 to 20q8 - Mucomyst and Xopenex - Zofran PRN - m.pneumonia, legionella and influenza negative - blood cxs negative x24 hrs - sputum and urine cultures pending - PT eval recommending home 2. Diastolic CHF, Echo reviewed - decreased Lasix 40mg IVP to 20mg IVP daily - cont cardizem 180mg PO daily 3. Diarrhea - order c.diff and stool culture, pending results 4. Electrolyte abnormalities: - will supplement K-Dur and Neutra-Phos daily 5. Hx HLD - cont zetia 6. Hx Gout: - cont allopurinol 7. PPX: GI: protonix DVT: SCDs/Lovenox Case was reviewed and discussed with Dr. Chapo Klein PGY2
[2017-12-23] MEDS: Acetylcysteine 20% Inhal Soln (4ml) IH SCH ×3 (01:25→13:59)
[2017-12-23] MEDS: Levalbuterol 0.63 MG/3 ML Inhal Soln UD IH SCH ×3 (01:25→13:58)
[2017-12-23] MEDS: Pantoprazole 40 mg EC Tab PO SCH (05:53)
[2017-12-23] MEDS: MethylPREDNISolone 40 mg Vial IVP SCH (05:53)
[2017-12-23] MEDS: Arformoterol 15 mcg/2 ml Inh Sol IH SCH (07:32)
[2017-12-23] MEDS: Budesonide 0.5 mg/2 ml Inhal Susp UD IH SCH (07:32)
[2017-12-23 07:59] VITALS: BP 158/81; RESP 20; TEMP 97.6; O2SAT 100
--- NOTE | 2017-12-23 08:20 | PN ---
Copied To: James Cowan MD Attending MD: James Cowan MD DATE: 12/22/2017 SUBJECTIVE: The patient is again seen in room 369, bed 1. The patient is seen lying in the bed, in room 369, bed 1. The patient states the breathing is better. Diarrhea has resolved. PHYSICAL EXAMINATION: VITAL SIGNS: T-max 97.6, 98.4; heart rate 68, 73; blood pressure 151/88, 159/82, 175/83; respiration 18; O2 sat 98%. HEENT: Head: Normocephalic, atraumatic. [place] conjunctivae. Anicteric sclerae. No oropharyngeal lesion. No neck rigidity. CHEST: Kyphosis. LUNGS: Examination shows no rales or crackles, almost resolved wheezing. No crackles. CARDIOVASCULAR: S1, S2, regular rhythm. ABDOMEN: Obese, protuberant. Positive bowel sound. GENITALIA: Female. RECTAL: Examination is deferred. EXTREMITIES: Show positive MURPHY stocking. MUSCULOSKELETAL: Examination shows elevated body mass index of 39.5. NEUROLOGIC: Cranial nerves II-XII intact. Gait examinations could not be tested. VASCULAR: Palpable pulses. DIAGNOSTICS: Sodium 44, potassium 4.1, chloride 104, CO2 27, anion gap 17, BUN 31, creatinine 1.2, GFR 54, glucose 126, calcium 9.1, phosphorus is up to 5.3, magnesium 1.8. LFTs are 41. AST . IMPRESSION: 1. Acute exacerbation of chronic obstructive pulmonary disease, resolving. 2. Diarrhea (resolved). 3. Hypertension. 4. Advanced chronic obstructive pulmonary disease. 5. Granulocytosis. 6. Prediabetes with hemoglobin A1c of 6.3. 7. Hypokalemia. 8. Hypophosphatemia. 9. Morbid obesity with elevated body mass index of 40. 10. Left axis deviation. 11. Lingular discoid atelectasis. 12. Right thyroid lobe 14-mm nonspecific nodule. 13. History of poor compliance. 14. History of diastolic congestive heart failure. PLAN: At this time, the patient's steroids will be tapered down. The patient has been updated about her condition and diagnosis. The patient has been ordered Mucomyst nebulizer 20% 4 mL every 6 hours, Brovana nebulizer 15 mcg every 12, Cardizem CD 180 mg daily, doxycycline 100 mg p.o. every 12, K-Dur 20 mEq daily, Lasix decreased to 20 mg IV daily, Lovenox 40 mg subcu daily, Protonix 40 mg twice a day, Pulmicort nebulizer 0.5 mg every 12 hours, Rocephin 2 g IV daily, Solu-Medrol decreased to 20 mg IV every 8, Tessalon Perles 200 three times a day, Tylenol p.r.n., Xopenex nebulizer 0.63 every 6 hours, Zetia 10 mg daily, Zofran 4 IV every 4 p.r.n., Zyloprim 100 mg daily. Chest PT, incentive spirometry, oxygen 2 liters ordered. If the patient stays stable without any adverse event, the patient will be considered for discharge probably in the next 24-48 hours. The patient updated about her condition, diagnosis, treatment plan, management plan, etc. at length and all questions concerned answered. Dictated and electronically signed, not read. James Cowan MD
[2017-12-23] MEDS: diltiaZEM 180 mg/24 Hours CD Cap PO SCH (09:51)
[2017-12-23] MEDS: Enoxaparin 40 mg Syringe SC SCH (09:55)
[2017-12-23] MEDS: Potassium Chloride 20 mEq ER Tab PO SCH (09:55)
[2017-12-23] MEDS: cefTRIAXone 2 GM IN NS 2 GM/100 ML BAG IVPB SCH (09:56)
[2017-12-23 10:02] VITALS: PULSE 76
--- NOTE | 2017-12-23 10:37 | CP.PCM.DIS ---
Provider - Provider Date of Admission: 12/19/17 19:08 Attending physician: James Cowan MD Primary care physician: Carrie Ovalles MD Time Spent in preparation of Discharge (in minutes): 35 Hospital Course - Lab Results Lab Results: Micro Results 12/21/17 20:31 Stool C. difficile Antigen & Toxin A,B (M - Final 12/19/17 20:46 Urine,Clean Catch Urine Culture - Final No Growth (<1,000 CFU/ML) 12/20/17 22:53 Sputum Gram Stain - Final Most Recent Lab Values WBC 7.8 10^3/ul (4.5-11.0) D 12/20/17 07:00 RBC 4.33 10^6/uL (3.5-6.1) 12/20/17 07:00 Hgb 12.0 g/dL (12.0-16.0) 12/20/17 07:00 Hct 36.5 % (36.0-48.0) 12/20/17 07:00 MCV 84.3 fl (80.0-105.0) 12/20/17 07:00 MCH 27.7 pg (25.0-35.0) 12/20/17 07:00 MCHC 32.9 g/dl (31.0-37.0) 12/20/17 07:00 RDW 14.8 % (11.5-14.5) H 12/20/17 07:00 Plt Count 328 10^3/uL (120.0-450.0) 12/20/17 07:00 MPV 9.4 fl (7.0-11.0) 12/20/17 07:00 Gran % 84.1 % (50.0-68.0) H 12/20/17 07:00 Lymph % (Auto) 15.1 % (22.0-35.0) L 12/20/17 07:00 Dukes % (Auto) 0.4 % (1.0-6.0) L 12/20/17 07:00 Eos % (Auto) 0.3 % (1.5-5.0) L 12/20/17 07:00 Baso % (Auto) 0.1 % (0.0-3.0) 12/20/17 07:00 Gran # 6.56 (1.4-6.5) H 12/20/17 07:00 Lymph # (Auto) 1.2 (1.2-3.4) 12/20/17 07:00 [place]ukes # (Auto) 0.0 (0.1-0.6) L 12/20/17 07:00 Eos # (Auto) 0.0 (0.0-0.7) 12/20/17 07:00 Baso # (Auto) 0.01 K/mm3 (0.0-2.0) 12/20/17 07:00 PT 12.1 SECONDS (9.4-12.5) 12/19/17 17:35 INR 1.06 12/19/17 17:35 pCO2 38 mm/Hg (35-45) 12/19/17 23:50 pO2 98.0 mm/Hg (80-100) 12/19/17 23:50 HCO3 26.4 mmol/L (21-28) 12/19/17 23:50 ABG pH 7.45 (7.35-7.45) 12/19/17 23:50 ABG Total CO2 27.6 mmol.L (22-28) 12/19/17 23:50 ABG O2 Saturation 99.4 % (95-98) H 12/19/17 23:50 ABG O2 Content 16.4 ML/dl (15-23) 12/19/17 23:50 ABG Base Excess 2.4 mmol/L (-2.0-3.0) 12/19/17 23:50 ABG Hemoglobin 12.0 g/dL (11.7-17.4) 12/19/17 23:50 ABG Carboxyhemoglobin 1.9 % (0.5-1.5) H 12/19/17 23:50 POC ABG HHb (Measured) 0.6 % (0-5) 12/19/17 23:50 ABG Methemoglobin 0.8 % (0.0-3.0) 12/19/17 23:50 ABG O2 Capacity 16.5 mL/dl (16-24) 12/19/17 23:50 VBG pH 7.42 (7.32-7.43) 12/19/17 17:50 VBG pCO2 51.0 (40-60) 12/19/17 17:50 VBG HCO3 33.1 mmol/l (21-28) H 12/19/17 17:50 VBG Total CO2 34.7 mmol.L (22-28) H 12/19/17 17:50 VBG O2 Sat (Calc) 85.8 % (40-65) H 12/19/17 17:50 VBG Base Excess 7.2 mmol/L (0.0-2.0) H 12/19/17 17:50 VBG Potassium 3.4 mmol/L (3.6-5.2) L 12/19/17 17:50 Hgb O2 Saturation 96.7 % (95.0-98.0) 12/19/17 23:50 Sodium 144.0 mmol/L (132-148) 12/19/17 17:50 Chloride 107.0 mmol/L (98-107) 12/19/17 17:50 Glucose 103 mg/dl (65-105) 12/19/17 17:50 Lactate 1.6 mmol/L (0.7-2.1) 12/19/17 17:50 FiO2 32.0 % 12/19/17 23:50 Sodium 144 mmol/L (132-148) 12/22/17 06:00 Potassium 4.1 mmol/L (3.6-5.0) 12/22/17 06:00 Chloride 104 mmol/L (98-107) 12/22/17 06:00 Carbon Dioxide 27 mmol/L (21-33) 12/22/17 06:00 Anion Gap 17 (10-20) 12/22/17 06:00 BUN 31 mg/dL (7-21) H 12/22/17 06:00 Creatinine 1.2 mg/dl (0.7-1.2) 12/22/17 06:00 Est GFR ( Amer) 54 12/22/17 06:00 Est GFR (Non-Af Amer) 44 12/22/17 06:00 POC Glucose (mg/dL) 124 mg/dL (65-110) H 12/23/17 07:29 Random Glucose 126 mg/dL (70-110) H 12/22/17 06:00 Hemoglobin A1c 6.3 % (4.2-6.5) 12/20/17 07:00 Uric Acid 4.6 mg/dL (2.5-6.2) 12/20/17 07:00 Calcium 9.1 mg/dL (8.4-10.5) 12/22/17 06:00 Phosphorus 5.3 mg/dL (2.5-4.5) H 12/22/17 06:00 Magnesium 1.8 mg/dL (1.7-2.2) 12/22/17 06:00 Total Bilirubin 0.1 mg/dL (0.2-1.3) L 12/22/17 06:00 Direct Bilirubin 0.1 mg/dL (0.0-0.4) 12/22/17 06:00 AST 41 U/L (14-36) H 12/22/17 06:00 ALT 34 U/L (7-56) 12/22/17 06:00 Alkaline Phosphatase 79 U/L (38-126) 12/22/17 06:00 Lactate Dehydrogenase 546 U/L (333-699) 12/19/17 17:35 Total Creatine Kinase 351 U/L (35-230) H 12/19/17 17:35 CK-MB (CK-2) 1.8 ng/mL (0.0-3.6) 12/19/17 17:35 CK-MB (CK-2) % Cancelled 12/19/17 17:35 Troponin I < 0.01 ng/mL 12/19/17 17:35 NT-Pro-B Natriuret Pep 22.5 pg/mL (0-450) 12/19/17 17:35 Total Protein 6.8 g/dL (5.8-8.3) 12/22/17 06:00 Albumin 4.0 g/dL (3.0-4.8) 12/22/17 06:00 Globulin 2.9 gm/dL 12/22/17 06:00 Albumin/Globulin Ratio 1.4 (1.1-1.8) 12/22/17 06:00 Venous Blood Potassium 3.4 mmol/L (3.6-5.2) L 12/19/17 17:50 Urine Color Light yellow (YELLOW) 12/19/17 20:46 Urine Appearance Clear (CLEAR) 12/19/17 20:46 Urine pH 6.0 (4.7-8.0) 12/19/17 20:46 Ur Specific [place] 1.010 (1.005-1.035) 12/19/17 20:46 Urine Protein Negative mg/dL (<30 mg/dL) 12/19/17 20:46 Urine Glucose (UA) Negative mg/dL (NEGATIVE) 12/19/17 20:46 Urine Ketones Negative mg/dL (NEGATIVE) 12/19/17 20:46 Urine Blood Negative (NEGATIVE) 12/19/17 20:46 Urine Nitrate Negative (NEGATIVE) 12/19/17 20:46 Urine Bilirubin Negative (NEGATIVE) 12/19/17 20:46 Urine Urobilinogen 0.2 E.U./dL (<1 E.U./dL) 12/19/17 20:46 Ur Leukocyte Esterase Negative [place]/uL (NEGATIVE) 12/19/17 20:46 Influenza Typ A,B (EIA) Negative for flu a/b (NEGATIVE) 12/19/17 22:58 Ur L.pneumophila Ag Negative (NEGATIVE) 12/19/17 23:30 Mycoplasma pneumon IgM 41 U/mL (<770) 12/20/17 07:00 - Hospital Course Hospital Course: 72 year-old AAF with a PMH COPD, HTN, arthritis presents with shortness of breath, admitted for COPD exacerbation. Echo was reviewed from 08/2017 shows normal LVEF, but was positive for moderate pulmonary hypertension and moderate tricuspid regurgitation. EKG from this visit showed sinus arrhythmia with PACs , left axis deviation. CT chest showed discoid atelectasis in the lingula, and nonspecific right lobe thyroid nodule. Patient was started on antibiotics ( Ropcehin and Doxy) and continued to improve with breathing treatments. While inpatient, the patient was seen by a marble cleaner for a meal plan and advice about weight loss; she was advised to lose 50 lbs. She received DVT and GI ppx. Patient was seen by PT and they recommended home discharge. On morning of discharge, the patient's wheezing had resolved and breathing was much improved, and she is ambulating without any problems. She did mention several episodes of loose stools, and c. diff and stool cultures were ordered but are negative so far. The patient's PMD was also notified regarding the admission. The patient is advised to continue home medications as well as the new scripts as per med rec and the meds were all reviewed by the parts data writer with the patient. Discharge instructions and meds were reviewed. She will f/u with PMD within 1 week. Discharge Exam - Head Exam Head Exam: NORMAL INSPECTION - Eye Exam Eye Exam: EOMI, Normal appearance, PERRL. absent: Scleral icterus - ENT Exam ENT Exam: Normal Exam - Neck Exam Neck exam: Full Rom - Respiratory Exam Respiratory Exam: Clear to PA & Lateral, NORMAL BREATHING PATTERN. absent: Rales, Rhonchi, Wheezes, Stridor Additional comments: cough is present but improved from initial presentation - Cardiovascular Exam Cardiovascular Exam: RRR, +S1, +S2 - GI/Abdominal Exam GI & Abdominal Exam: Normal Bowel Sounds, Soft. absent: Tenderness Additional comments: obese body habitus - Extremities Exam Extremities exam: full ROM, pedal pulses present Additional comments: no pedal edema noted - Back Exam Back exam: NORMAL INSPECTION - Neurological Exam Neurological exam: Alert, CN II-XII Intact, Oriented x3 - Psychiatric Exam Psychiatric exam: Normal Mood - Skin Skin Exam: Normal Color Discharge Plan - Discharge Medications Prescriptions: Doxycycline Hyclate [Doryx] 100 mg PO Q12 #14 cap predniSONE [Prednisone] 10 mg PO DAILY #50 tab - Follow Up Plan Condition: FAIR Disposition: HOME/ ROUTINE Additional Instructions: DISCHARGE HOME FOLLOW UP PMD WITHIN 1 WEEK DISCHARGE MEDS PER UPDATED AMBULATORY ORDERS PLUS NEW SCRIPTS COPY OF DIET TO PATIENT UPON DISCHARGE. WEIGHT LOSS OF ABOUT 50 LBS. PATIENT TO RELEASE ALL RECORDS FROM THIS HOSPITALIZATION TO PMD Referrals: Carrie Ovalles MD [Primary Care Provider] - 1 Week (DISCHARGE HOME FOLLOW UP PMD WITHIN 1 WEEK DISCHARGE MEDS PER UPDATED AMBULATORY ORDERS PLUS NEW SCRIPTS COPY OF DIET TO PATIENT UPON DISCHARGE. WEIGHT LOSS OF ABOUT 50 LBS. PATIENT TO RELEASE ALL RECORDS FROM THIS HOSPITALIZATION TO PMD) James Cowan MD [Staff Provider] -
--- NOTE | 2017-12-24 07:22 | DS ---
Copied To: James Cowan MD Attending MD: James Cowan MD HISTORY OF PRESENT ILLNESS: The patient is seen in room 369, bed 1. The patient is sitting up in the bed, watching TV. The patient does not appear to be in any respiratory distress. Overnight nurse's notes were reviewed. According to the nurses' note, the patient is eagerly wanting to go home. PHYSICAL EXAMINATION: VITAL SIGNS: T-max 98.9; pulse 76, 73; blood pressure 158, 81; respirations 20; O2 sat 100% on 2 liters nasal cannula. HEAD: Normocephalic, atraumatic. HEENT: Shows pink conjunctivae. Anicteric sclerae. No oropharyngeal lesion. NECK: No neck rigidity. CHEST: Kyphosis. LUNGS: Shows no wheezing, crackles or rales. Decreased air entry. CARDIOVASCULAR: S1, S2, regular rhythm. ABDOMEN: Soft, protuberant, obese. Positive bowel sounds. GENITALIA: Female. RECTAL: Deferred. EXTREMITIES: Shows positive MURPHY stocking. Trace swelling. MUSCULOSKELETAL: Shows a body mass index of 39.5. NEUROLOGIC: The patient is alert, awake, oriented x3. Cranial nerves II through XII limited. GAIT: Not tested. DIAGNOSTICS: None from today. Stool culture, C. Diff is negative. Toxin and antigen sputum cultures, pending results. Urine culture, blood cultures, negative. FINAL IMPRESSION, PLAN AND DISCHARGE DIAGNOSES: 1. Acute exacerbation of chronic obstructive pulmonary disease (resolved and resolving). 2. Hypertension. 3. Poor compliance. 4. Advanced chronic obstructive pulmonary disease. 5. Morbid obesity with body mass index of almost 40. 6. Pulmonary hypertension. 7. Granulocytosis. 8. Prediabetes with hyperglycemia and hemoglobin A1c of 6.3. 9. Hypokalemia. 10. Hypophosphatemia. 11. Bilateral lower extremity venous stasis secondary to diastolic right-sided congestive heart failure and pulmonary hypertension and tricuspid regurgitation. 12. Lingular discoid atelectasis. 13. Nonspecific 14-mm right thyroid lobe nodule. 14. Left axis deviation. 15. Constipation. 16. Hyperuricemia. Plan at this time, the patient has improved significantly. The patient was recommended discharge by Physical Therapy. DISCHARGE MEDICATIONS: Tylenol 650 mg every 6 hours. p.o., suppository p.r.n.; Mucomyst nebulizer 20% 4 mL every 6 hours; DuoNeb nebulizer every 6 hours; allopurinol 300 mg daily; Brovana 15 mcg every 12; Tessalon Perles 200 three times a day; Pulmicort nebulizer 0.5 mg every 12 hours; Symbicort 80/4.5 twice a day; Cardizem CD 180 mg daily; Colace 100 mg three times a day; doxycycline 100 mg p.o. every 12; Zetia 10 mg daily; Lasix 40 mg p.o. daily; Protonix 40 mg daily; MiraLax 17 g daily; prednisone tapering dose 40 mg daily for 3 days, then 30 mg daily for 3 days, next 20 mg daily for 3 days, then 10 mg daily for 3 days; Spiriva 18 mcg daily. The patient is discharged home. The patient is advised to follow up with PMD within 1 week. The patient's discharge medications as per updated ambulatory orders plus new scripts, copy of the diet to the patient to be given upon discharge. Weight loss of about 50 pounds was advised. The patient is advised to release all records from this hospitalization to PMD. During this hospitalization, the patient was extensively explained about the details of her medical condition, diagnoses, diagnostic test results, all etc. were discussed and explained to the patient on a daily basis. The patient was specifically advised to release all records to her PMD, for all further future care. The patient will be followed up with her PMD. Time spent in the discharge process more than 45 minutes. Dictated and electronically signed, not read. James Cowan MD
== END 2017-12-23 14:23 | disposition home or self-care (01) | DRG 191 ==
LOC: ED 17:22 → ERH 19:08 → 3RNO 21:00
PROVIDERS: ADMIT Internal Medicine; ATTEND Internal Medicine
PROC: 3E0F7GC Introduction of Other Therapeutic Substance into Respiratory Tract, Via Natural or Artificial Opening (ICD-10-PCS; principal; 2017-12-20)
DX: J44.1 Chronic obstructive pulmonary disease with (acute) exacerbation (principal); J98.11 Atelectasis; Z68.41 Body mass index [BMI] 40.0-44.9, adult; I50.32 Chronic diastolic (congestive) heart failure; I27.20 Pulmonary hypertension, unspecified; E66.01 Morbid (severe) obesity due to excess calories; R09.02 Hypoxemia; E87.6 Hypokalemia; I11.0 Hypertensive heart disease with heart failure; I87.2 Venous insufficiency (chronic) (peripheral); K59.00 Constipation, unspecified; E04.1 Nontoxic single thyroid nodule; E79.0 Hyperuricemia without signs of inflammatory arthritis and tophaceous disease; E83.39 Other disorders of phosphorus metabolism; R73.03 Prediabetes; I36.1 Nonrheumatic tricuspid (valve) insufficiency; Z91.11 Patient's noncompliance with dietary regimen; Z91.14 Patient's other noncompliance with medication regimen; Z87.891 Personal history of nicotine dependence